=== PATIENT | male | born 1950 | race Caucasian/White ===

== ENCOUNTER 2021-07-16 01:37 | Day surgery (SDC) | payer MEDICARE, OTHER, SELFPAY ==
[2021-06-29 11:22] VITALS: BMI 25.7
[2021-07-16 09:03] VITALS: BP 180/92; PULSE 58; RESP 16; TEMP 36.2; O2SAT 99; BMI 26.9
[2021-07-16] MEDS: LACTATED RINGERS 1,000 ML 150 ML IV CONT (09:13)
--- NOTE | 2021-07-16 09:24 | WPDANESEPPF ---
Anes - Initial Pre Proc Eval Procedure: Operation Date: 07/16/21 09:30 Proposed Procedures p Screening Colonoscopy - Yaya Galaviz MD Date/Time: 07/16/21 09:24 Surgeon: Yaya Galaviz MD Pre Op Diagnosis: neoplasm screening Patient Data Age: 70 Gender: M Height: 1.83 m Weight: 90 kg Last Vital Signs Temp 97.2 F L 07/16/21 09:03 Pulse 58 L 07/16/21 09:03 Resp 16 07/16/21 09:03 BP 180/92 H 07/16/21 09:03 Pulse Ox 99 07/16/21 09:03 Allergies Allergy/AdvReac Type Severity Reaction Status Date / Time Penicillins Allergy Mild Rash Verified 07/16/21 09:02 lisinopril AdvReac Intermediate angioedema Verified 07/16/21 09:02 Home Medications Medication Instructions Recorded Confirmed Type aspirin 81 mg tablet,delayed 81 mg PO DAILY 03/12/21 07/16/21 History release atorvastatin 20 mg tablet 20 mg PO DAILY #90 tablet 03/12/21 07/16/21 Rx infliximab 100 mg intravenous 100 mg IV WE 03/12/21 07/16/21 History solution metoprolol tartrate 100 mg tablet 100 mg PO BID #180 tablet 03/12/21 07/16/21 Rx neomycin 1.75 mg-polymyxin 10,000 1 drp EACH EYE Q6H 03/12/21 07/16/21 History unit-gramicidin 0.025mg/mL eye drops Patient hx anesthesia problems: none Family hx anesthesia problems: none Results Review: All pre-operative results and documents have been reviewed as part of the pre-operative evaluation. [facility] Surgical History Surgical History (Updated 03/12/21 @ 09:13 by Tracey Gallegos MA) History of total right hip replacement Family History Family History (Updated 11/04/13 @ 07:13 by DOCTOR UNKNOWN) Father Family history of Alzheimer's disease Mother Family history of Alzheimer's disease Social History Social History (Updated 03/12/21 @ 09:16 by Tracey Gallegos MA) Smoking status: Never smoker Alcohol intake: current Drinks per week: 2 Substance use: never Substance use type: does not use Living arrangements: with family Gender identity (if verbalized by the patient): Male Sexual Orientation (if Verbalized by the Patient): Straight or Heterosexual Spiritual care concerns: No Agree to blood products: No Anes - Eval Final PreProcedure Day of Procedure 07/16/21 09:24 Patient weight: normal Heart: regular rate and rhythm Lungs: clear to auscultation Neurological: alert and oriented Last oral intake: >/= 8 hours ASA classification: II Emergent: no Anesthetic plan: proceed Anesthesia type and monitoring: general GIVS and standard monitoring Results Review: All pre-operative results and documents have been reviewed as part of the pre-operative evaluation. Informed Consent: The patient's anesthetic plan and its attendant risks and benefits were discussed with the patient/family/POA. Questions were solicited and answers provided to the satisfaction of the patient/family/POA.
--- NOTE | 2021-07-16 09:27 | WPDGICN ---
Assessment and Plan Assessment and plan (1) Screen for colon cancer: Code(s): Z12.11 - Encounter for screening for malignant neoplasm of colon Status: Acute Assessment and Plan: Patient presents today for colonoscopy neoplasia screening. Further recommendations will be given after endoscopy. GI Consult Note Consult date/time: 07/16/21 09:27 HPI: Adriel He is a 70 year old male Presents for screening colonoscopy. Patient's current weight appetite bowel movements are normal. He denies abdominal pain. He has had no bleeding. Previous colonoscopy Was performed 12 years ago. Patient reports his current weight appetite bowel movements are normal. He denies abdominal pain. He has had no bleeding. Family history is noncontributory. He presents today for neoplasia screening. Review of Systems Review of Systems: All systems reviewed & are unremarkable except as noted in HPI and below PMFSH Surgical History Surgical History (Updated 03/12/21 @ 09:13 by Tracey Gallegos MA) History of total right hip replacement Family History Family History (Updated 11/04/13 @ 07:13 by DOCTOR UNKNOWN) Father Family history of Alzheimer's disease Mother Family history of Alzheimer's disease Social History Social History (Updated 03/12/21 @ 09:16 by Tracey Gallegos MA) Smoking status: Never smoker Alcohol intake: current Drinks per week: 2 Substance use: never Substance use type: does not use Living arrangements: with family Gender identity (if verbalized by the patient): Male Sexual Orientation (if Verbalized by the Patient): Straight or Heterosexual Spiritual care concerns: No Agree to blood products: No Meds Home Medications and Allergies Home Medications Medication Instructions Recorded Confirmed Type aspirin 81 mg tablet,delayed 81 mg PO DAILY 03/12/21 07/16/21 History release atorvastatin 20 mg tablet 20 mg PO DAILY #90 tablet 03/12/21 07/16/21 Rx infliximab 100 mg intravenous 100 mg IV WE 03/12/21 07/16/21 History solution metoprolol tartrate 100 mg tablet 100 mg PO BID #180 tablet 03/12/21 07/16/21 Rx neomycin 1.75 mg-polymyxin 10,000 1 drp EACH EYE Q6H 03/12/21 07/16/21 History unit-gramicidin 0.025mg/mL eye drops Allergies Allergy/AdvReac Type Severity Reaction Status Date / Time Penicillins Allergy Mild Rash Verified 07/16/21 09:02 lisinopril AdvReac Intermediate angioedema Verified 07/16/21 09:02 Vital Signs Vital Signs - 24 hr 07/16/21 09:03 Temperature 97.2 F L Pulse Rate 58 L Respiratory Rate 16 Blood Pressure 180/92 H Pulse Oximetry 99 Exam Narrative: Physical exam reveals patient to be alert. Vital signs stable. HEENT exam is unremarkable. Patient is anicteric. Lungs are clear to auscultation and percussion. Heart is without murmur or extra sounds. Abdomen bowel sounds are present soft nontender with no organomegaly. Digital external rectal exam is normal.
[2021-07-16 09:58] VITALS: BP 136/84; PULSE 53; RESP 16; O2SAT 96
[2021-07-16 10:08] VITALS: BP 142/82; PULSE 51; RESP 15; O2SAT 97
[2021-07-16 10:18] VITALS: BP 133/94; PULSE 55; RESP 20; O2SAT 97
== END 2021-07-16 10:28 | disposition home or self-care (01) ==
PROVIDERS: PCP Family Medicine Adolescent Medicine; Visit Provider Internal Medicine Gastroenterology
PROC: 0DJD8ZZ Inspection of Lower Intestinal Tract, Via Natural or Artificial Opening Endoscopic (ICD-10-PCS; CPT 45378; principal; 2021-07-16 09:30)
DX: Z12.11 Encounter for screening for malignant neoplasm of colon (principal); K64.8 Other hemorrhoids; Z96.649 Presence of unspecified artificial hip joint
CPT/HCPCS: G0121; J2704; J7120

== ENCOUNTER 2023-06-04 23:37 | Emergency (ER) | payer MEDICARE, OTHER, SELFPAY ==
[2023-06-04 23:41] VITALS: BP 153/83; PULSE 68; RESP 20; TEMP 36.8; O2SAT 96
--- NOTE | 2023-06-05 00:29 | ED.GENADULT ---
HPI - General Adult General Chief complaint: Urogenital-Male Stated complaint: trouble urination Time Seen by Provider: 06/04/23 23:59 History of Present Illness HPI narrative: Patient is a 72-year-old male who presents emergency department this evening with urinary retention. Patient states that earlier today he underwent general anesthesia for a left eye surgery and since then he has not been able to urinate, states that he only has a few drops of urine dribbling. Patient does not recall if Montoya catheter was placed during his surgery and is currently denying any suprapubic pain. Patient only feels some mild pressure as he feels the urge to urinate but is unable to do so. Patient denies any additional symptoms. There are no other modifying, alleviating, or precipitating factors at this time. Related Data Home Medications Medication Instructions Recorded Confirmed aspirin 81 mg tablet,delayed 81 mg PO DAILY 03/12/21 03/20/23 release Allergies Allergy/AdvReac Type Severity Reaction Status Date / Time Penicillins Allergy Mild Rash Verified 03/20/23 07:55 lisinopril AdvReac Intermediate angioedema Verified 03/20/23 07:55 Review of Systems Review of Systems: All systems are reviewed and are negative unless stated otherwise in the HPI. PMFSH Surgical History Surgical History History of total right hip replacement Family History Family History Father Family history of Alzheimer's disease Mother Family history of Alzheimer's disease Social History Social History Smoking status: Never smoker Alcohol intake: current Drinks per week: 2 Substance use: never Substance use type: does not use Living arrangements: with family Occupation/Education: retired Gender identity (if verbalized by the patient): Male Sexual Orientation (if Verbalized by the Patient): Straight or Heterosexual Spiritual care concerns: No Agree to blood products: No Comments Past medical history consists of a rare autoimmune disease, otherwise patient denies significant past medical history. Exam Narrative: General: Alert, awake, afebrile, in no acute distress. HEENT: Left eye patch, no rhinorrhea, no post nasal drip, oropharynx clear. Neck: Trachea midline, no JVD, no lymphadenopathy. Cardiovascular: Regular rate and rhythm, no murmurs, rubs or gallops, no peripheral edema. Respiratory: Clear to auscultation bilaterally, no tachypnea, no wheezing, no rhonchi, no rubs, no respiratory distress. Abdomen: Soft, nontender, nondistended, no rebound, no guarding, no peritoneal signs. Musculoskeletal: No joint swelling or deformity, normal muscle tone. Skin: No rashes or petechia, no signs of infection. Psychiatric: Alert and oriented, normal behavior and judgment for situation. Neurological: Alert and oriented to person, place, and time. Follows all commands. No focal deficits, speech is clear and fluent. Course Vital Signs Vital signs: Vital Signs Temperature 98.2 F 06/04/23 23:41 Pulse Rate 68 06/04/23 23:41 Respiratory Rate 20 06/04/23 23:41 Blood Pressure 153/83 H 06/04/23 23:41 Pulse Oximetry 96 06/04/23 23:41 Oxygen Delivery Room Air 06/04/23 23:41 Temperature 98.2 F 06/04/23 23:41 Pulse Rate 62 06/05/23 00:56 Respiratory Rate 17 06/05/23 00:56 Blood Pressure 128/85 06/05/23 00:56 Pulse Oximetry 97 06/05/23 00:56 Oxygen Delivery Room Air 06/04/23 23:41 Medical Decision Making MDM Narrative Medical decision making narrative: The patient was evaluated by myself in the emergency department. History is obtained from ara who is an independent historian and physical exam was performed. External medical records were reviewed at this time. Bladder scan was obtained at this time revealing 600 cc
[2023-06-05 00:56] VITALS: BP 128/85; PULSE 62; RESP 17; O2SAT 97
== END 2023-06-05 00:58 | disposition home or self-care (01) ==
PROVIDERS: Emergency Provider Emergency Medicine; PCP Family Medicine Adolescent Medicine
DX: N99.89 Other postprocedural complications and disorders of genitourinary system (principal); R33.9 Retention of urine, unspecified; Z79.82 Long term (current) use of aspirin; Z96.641 Presence of right artificial hip joint; Y83.8 Other surgical procedures as the cause of abnormal reaction of the patient, or of later complication, without mention of misadventure at the time of the procedure
CPT/HCPCS: 51702; 99283

== ENCOUNTER 2023-10-15 09:17 | Outpatient (CLI) | payer MEDICARE, OTHER, SELFPAY ==
--- NOTE | ~2023-10-15 | XR_ITS ---
Right Knee Technique: AP, lateral, and sunrise views were obtained. Clinical History: Pain Findings: No fracture or dislocation is seen. Osseous alignment is anatomic. There is advanced patell ofemoral compartment degenerative change with narrowing of this joint space. There is mild to moderat e medial compartment narrowing. There is mild osteophyte formation, especially the patella and interc ondylar notch. Soft tissues are unremarkable. No joint effusion is seen. Impression: Tricompartmental degenerative change, as above, with narrowing of the medial and patellofemoral snow rtment. Reviewed, dictated and finalized at location M. Impression: Tricompartmental degenerative change, as above, with narrowing of the medial an d patellofemoral compartment.
== END 2023-10-15 09:18 | disposition home or self-care (01) ==
PROVIDERS: PCP Family Medicine Adolescent Medicine; Visit Provider Orthopaedic Surgery
DX: M17.11 Unilateral primary osteoarthritis, right knee (principal)
CPT/HCPCS: 73564

== ENCOUNTER 2023-11-19 23:09 | Emergency (ER) | payer MEDICARE, OTHER, SELFPAY ==
--- NOTE | ~2023-11-19 | CT_ITS ---
CT of the Abdomen and Pelvis: Indication: Left flank pain Technique: 2.5 mm axial scans were obtained through the abdomen and pelvis following intravenous adm inistration of 100 cc of Omnipaque 350. Dose reduction technique was used on this scan by utilizing a utomated exposure control and iterative reconstruction technique. The dose-length product (DLP) was 8 41.63 mGy-cm. Findings: Scans through the lung bases are unremarkable. The liver, spleen, pancreas, gallbladder, adrenals and right kidney are within normal limits. There i s a 5 mm stone at the distal left ureter (axial image 181), with moderate left hydroureteronephrosis to this level. There is left perinephric stranding. There are atherosclerotic calcifications of the a sherron. No lymphadenopathy. No bowel obstruction or bowel wall thickening. There is no evidence to suggest acute appendicitis. Images through the pelvis are mildly degraded by streak artifact from right hip arthroplasty. Urinary bladder unremarkable. No pelvic mass seen. No ascites. Impression: 5 mm distal left ureteral stone with moderate left hydroureteronephrosis to this level. Reviewed, dictated and finalized at location M. Impression: 5 mm distal left ureteral stone with moderate left hydroureteronephrosis to thi s level.
[2023-11-19 23:13] VITALS: BP 175/81; PULSE 57; RESP 20; TEMP 36.8; O2SAT 100
[2023-11-20] MEDS: SODIUM CHLORIDE 0.9% IV 1,000 ML 999 ML IV CONT (03:34)
[2023-11-20] MEDS: MORPHINE SULFATE (*CRX) 4 MG/ML INJ 2 MG IV PUSH (03:35)
[2023-11-20] MEDS: ONDANSETRON INJ 4 MG/2 ML VIAL IV PUSH (03:35)
[2023-11-20 03:44] LABS: Basophils Percent Auto 0.5 % (0.2-1.2); Eosinophils Absolute Auto 0.1 K/mm3 (0-0.3); Eosinophils Percent Auto 0.8 % (0-4.4); Hematocrit 35.2 % (42.0-52.0); Hemoglobin 12.4 g/dL (14.0-18.0); Immature Granulocyte Absolute 0.02 K/mm3 (0.00-0.031); Immature Granulocyte Percent A 0.3 % (0-0.5); Immature Platelet Fraction Pct 2.8 % (0.9-11.2); Lymphocytes Absolute Auto 0.42 K/mm3 (0.9-3.2); Lymphocytes Percent Auto 6.5 % (18.3-44.2); Mean Corpuscular HGB Conc 35.2 g/dl (32-36); Mean Corpuscular Hemoglobin 33.7 pg (26-34); Mean Corpuscular Volume 95.7 fl (80-100); Monocytes Absolute Auto 0.6 K/mm3 (0.1-0.6); Monocytes Percent Auto 9.5 % (2.6-8.5); Neutrophils Absolute Auto 5.3 K/mm3 (1.3-6.7); Neutrophils Percent Auto 82.4 % (45.5-73.1); Platelet Count Result 133 k/mm3 (150-375); Red Blood Count 3.68 M/mm3 (4.6-6.20); White Blood Count 6.4 K/mm3 (4.5-10.0)
[2023-11-20 03:57] LABS: Alanine Aminotransferase 20 U/L (6-50); Albumin Level 4.4 g/dL (3.5-5.1); Alkaline Phosphatase 67 U/L (38-126); Anion Gap 7 mmol/L (4-12); Aspartate Amino Transferase 40 U/L (17-59); Blood Urea Nitrogen 25 mg/dL (9-20); Calcium 8.9 mg/dL (8.4-10.2); Carbon Dioxide 29 mmol/L (22-30); Chloride 101 mmol/L (98-107); Estimated CRCL calculation 41 ml/min; Estimated Glomerular Filt Rate 46; Glucose 135 mg/dL (65-110); Lipase 68 U/L (23-300); Potassium 4.6 mmol/L (3.4-5.0); Sodium 137 mmol/L (137-145)
[2023-11-20 03:58] LABS: Lactic Acid Reflex 1.2 mmol/L (0.7-2.0)
[2023-11-20 04:41] VITALS: BP 146/84; PULSE 62; RESP 16; O2SAT 97
[2023-11-20 04:43] LABS: Add Urine Microscopic? NO; Appearance Urine Clear (Clear); Bilirubin Urine Negative (Negative); Blood Urine Negative (Negative); Color Urine Yellow (Yellow); Glucose Urine UA Negative (Negative); Ketones Urine Trace mg/dL (Negative); Leukocyte Esterase Ur Negative LEU/UL (Negative); Nitrate Urine Negative (Negative); Protein Urine Negative (Negative); Specific Grav Ur 1.026 (1.001-1.035); Urobilinogen Urine 0.2 mg/dL (<2.0); pH Urine 6.5 (5.0-9.0)
[2023-11-20] MEDS: MORPHINE SULFATE (*CRX) 4 MG/ML INJ IV PUSH (04:46)
[2023-11-20 06:47] VITALS: BP 184/94; PULSE 65; RESP 15; O2SAT 100
--- NOTE | 2023-11-20 06:56 | ED.GENADULT ---
HPI - General Adult General Chief complaint: Back Pain/Injury Stated complaint: back pain Time Seen by Provider: 11/20/23 03:17 History of Present Illness HPI narrative: Patient 72-year-old gentleman presents emergency department chief complaint of left flank pain. Patient reports that he was seen by his primary care provider and treated for constipation reports he still has pain. Related Data Home Medications Medication Instructions Recorded Confirmed aspirin 81 mg tablet,delayed 81 mg PO DAILY 03/12/21 11/19/23 release Allergies Allergy/AdvReac Type Severity Reaction Status Date / Time Penicillins Allergy Mild Rash Verified 11/19/23 14:54 lisinopril AdvReac Intermediate angioedema Verified 11/19/23 14:54 Review of Systems Review of Systems: A 10 system review of systems was completed on the patient and is negative except for what is stated in the HPI. Nursing and ancillary documentation was reviewed. [facility] Surgical History Surgical History History of total right hip replacement Family History Family History Father Family history of Alzheimer's disease Mother Family history of Alzheimer's disease Social History Social History Smoking status: Never smoker Alcohol intake: current Drinks per week: 2 Substance use: never Substance use type: does not use Living arrangements: with family Occupation/Education: retired Gender identity (if verbalized by the patient): Male Sexual Orientation (if Verbalized by the Patient): Straight or Heterosexual Spiritual care concerns: No Agree to blood products: No Exam Narrative: GENERAL: Well-appearing, well-nourished, and in no acute distress. HEAD: Normocephalic, atraumatic. EYES: PERRLA and EOMI. ENT: Nares clear, no rhinorrhea or epistaxis. Mucous membranes moist. NECK: Supple. CHEST: Clear to auscultation. No respiratory distress. HEART: Regular rate and rhythm. No murmur heard. Normal peripheral pulses. ABDOMEN: Soft, nontender, nondistended, normal active bowel sounds. EXTREMITIES: Normal range of motion. No edema. SKIN: Warm, dry, no rash. NEURO: No focal deficits. Alert and oriented x3. PSYCH: Normal mood and affect. Course Vital Signs Vital signs: Vital Signs Temperature 36.8 C 11/19/23 23:13 Pulse Rate 57 L 11/19/23 23:13 Respiratory Rate 20 11/19/23 23:13 Blood Pressure 175/81 H 11/19/23 23:13 Pulse Oximetry 100 11/19/23 23:13 Oxygen Delivery Room Air 11/19/23 23:13 Temperature 36.8 C 11/19/23 23:13 Pulse Rate 65 11/20/23 06:47 Respiratory Rate 15 11/20/23 06:47 Blood Pressure 184/94 H 11/20/23 06:47 Pulse Oximetry 100 11/20/23 06:47 Oxygen Delivery Room Air 11/19/23 23:13 Medical Decision Making MDM Narrative Medical decision making narrative: Differential diagnosis includes ureterolithiasis, intra-abdominal infection, diverticulitis, colitis Laboratory studies were obtained on the patient showed a urinalysis with trace ketones electrolytes showed a creatinine 1.5 CBC showed a white count of 6.4 CT scan of the abdomen pelvis showed 5 mm distal left ureteral stone with moderate left hydroureteronephrosis to this level. Vital Signs Vital Signs: Vital Signs Temperature 36.8 C 11/19/23 23:13 Pulse Rate 57 L 11/19/23 23:13 Respiratory Rate 11/19/23 23:13 Blood Pressure 175/81 H 11/19/23 23:13 Pulse Oximetry 100 11/19/23 23:13 Oxygen Delivery Room Air 11/19/23 23:13 Temperature 36.8 C 11/19/23 23:13 Pulse Rate 65 11/20/23 06:47 Respiratory Rate 15 11/20/23 06:47 Blood Pressure 184/94 H 11/20/23 06:47 Pulse Oximetry 100 11/20/23 06:47 Oxygen Delivery Room Air 11/19/23 23:13 Lab Data 11/20/23 03:37 11/20/23 03
[2023-11-20 07:08] VITALS: BP 162/98; PULSE 55; RESP 15; O2SAT 100
== END 2023-11-20 07:09 | disposition home or self-care (01) ==
PROVIDERS: Emergency Provider Emergency Medicine; PCP Family Medicine Adolescent Medicine
DX: N20.1 Calculus of ureter (principal); Z96.641 Presence of right artificial hip joint
CPT/HCPCS: 36415; 74177; 80053; 81003; 83605; 83690; 85025; 85055; 96361; 96374; 96375; 96376; 99284; J2270; J2405; J7030; Q9967

== ENCOUNTER 2024-05-17 10:13 | Outpatient (CLI) | payer MEDICARE, OTHER, SELFPAY ==
--- NOTE | ~2024-05-17 | XR_ITS ---
XR ankle LT 2V Ordering provider: Jose Armando Kim MD History: . chronic pain and deformity around lateral malleolu . Comparison: None. FINDINGS: BONES: No acute fracture or dislocation. Sclerotic changes in the talus with no definite fracture. 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 SOFT TISSUES: Calcaneus spur. IMPRESSION: No acute osseous abnormality left ankle. 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 Reviewed, dictated and finalized at location A.
--- NOTE | ~2024-05-17 | XR_ITS ---
XR foot LT 2V Ordering provider: Jose Armando Kim MD History: . Sudden pain under left 4th metatarsal, R/O stress fx . Comparison: None. FINDINGS: BONES: Sclerotic changes in the talus bone with narrowing of the ankle joint. Osteopenia of the bones in the area of the phalanges. JOINT SPACES: Narrowing of the proximal and distal interphalangeal joints. Osteoarthritic changes of the first metatarsophalangeal joint. Narrowing of the lateral tarsometatarsal joints. No tarsal coali tion. SOFT TISSUES: Normal. Calcaneal spur. IMPRESSION: No definite acute osseous abnormality left foot. Sclerotic changes in the talus with osteoarthritic c hanges of the ankle joint. Polyarticular osteoarthritic changes. Reviewed, dictated and finalized at location A. IMPRESSION: No definite acute osseous abnormality left foot. Sclerotic changes in the talus with osteoarthritic changes of the ankle joint. Polyarticular osteoarthritic changes.
--- OUTSIDE RECORDS SUMMARY | 2024-05-17 12:00 | XMS_ITS | Encounter Summary ---
Author Organization [facility] Healthcare Address [address] [place] [address] Care Team Providers Care Supplies Packer Name Role Phone Jose Armando Kim MD Primary Care Prov ider Encounter Details Date Type Department Care Team (Late st Contact Info) Description 03/13/2023 Telephone [facility] [address] [place] [address] Rashmi Veliz RN Social History Tobacco Use Types Packs/Day Years Used Date Smoking Tobacco: Never Smokeless Tobacco: Never Alcohol Use Standard Drinks/Week Comments Yes 0 (1 standard drink = 0.6 oz pur e alcohol) moderate per patient Hunger Vital Sign Answer Date Recorded Within the past 12 months, y ou worried that your food would run out before you got the money to buy more. Never true 12/17/19 23 Within the past 12 months, t he food you bought just didn't last and you didn't have money to get more. Never true 12/16/2022 Personal Safety Answer Date Recorded Getting School Help Needed Denies 02/17 Sex and Gender Information Value Date Recorded Sex Assigned at Not on file Legal Sex Male 4:01 AM CRIBBER Gender Identity Male 01/26/2020 2:13 PM CRIBBER Sexual Orientation Straight 01/26/2020 2: 13 PM CRIBBER documented as of this encounter Plan of Treatment Not on file documented as of this encounter Visit Diagnoses Not on filedocumented in this encounter Care Teams Supplies Packer Relationship Specialty Start Date End Date Jose Armando Kim MD [address] [place] [address] PCP - General 05/06/16 documented as of this encounter
--- OUTSIDE RECORDS SUMMARY | 2024-05-17 12:00 | XMS_ITS | Referral Summary ---
Author Organization [facility] al Address [address] [place] [address] Care Team Providers Care Cassandra Developer Name Role Phone Jose Armando Kim MD Primary Care Prov ider Encounters Date Type Department Care Team Description 05/14/2024 Telephone [facility] [address] [place] [phone] Lesly Mac MD PhD 04/23/2024 3:00 PM CATCHER PLUG Office Visit [facility] Ophthal[facility] [address] [place] [address] [phone] Lesly Mac MD PhD OCP (ocular cicatricial pemphigoid) (HCC) (Primary Dx) 04/20/2024 Telephone [facility] [address] [place], [place] [phone] Lesly Mac MD PhD appt 04/05/2024 9:00 AM CATCHER PLUG Infusion [facility] [address] [phone] Other primary thrombocytopenia (HCC) (Primary Dx) 03/18/2024 8:45 AM CATCHER PLUG Office Visit [facility] Ophthalmology [address] [place] [address] Outpatient Health [address] [place] [phone] Lesly Mac MD PhD OCP (ocular cicatricial pemphigoid) (HCC) (Primary Dx) 02/25/2024 11:45 AM CATCHER PLUG Office Visit [facility] [address] [phone] Lauren Madrigal MD OCP (ocular cicatricial pemphigoid) (HCC) (Primary Dx); Abrasion of right cornea, subsequent encounter 02/25/2024 Telephone [facility] [address] [place] [phone] Lauren Madrigal MD same day appt 02/20/2024 12:45 PM CATCHER PLUG Office Visit [facility] [address] [place] [phone] Lesly Mac MD PhD OCP (ocular cicatricial pemphigoid) (HCC) (Primary Dx); Trichiasis of eyelid of both eyes; Abrasion of right cornea, subsequent encounter 02/19/2024 2:24 PM CATCHER PLUG - 02/19/2024 11:59 PM CATCHER PLUG Hospital Encounter [facility] [address] [place] [phone] Kidney stone Discharge Disposition: Discharge to home or self care 02/19/2024 1:00 PM CATCHER PLUG Office Visit [facility] ([facility]) - [facility] Urology [address] [place] [address] Advanced Medicine 11th [place] [address] [place] [address] Bob Stevens MD Kidney stone (Primary Dx) 02/18/2024 10:44 AM CATCHER PLUG - 02/18/2024 11:59 PM CATCHER PLUG Hospital Encounter [facility] [address] [place] [address] OCP (ocular cicatricial pemphigoid) (HCC) Discharge Disposition: Discharge to home or self care 02/18/2024 Orders Only [facility] [address] [place] [phone] Lesly Mac MD PhD OCP (ocular cicatricial pemphigoid) (HCC) (Primary Dx) 02/18/2024 10:00 AM CATCHER PLUG Office Visit [facility] Internal Medicine [facility] [place] [phone] Timoteo Mtz MD PhD OCP (ocular cicatricial pemphigoid) ([facility]) (Primary Dx); High risk medications (not anticoagulants) long-term use 02/18/2024 8:45 AM CATCHER PLUG Office Visit [facility]mology [address] [place] [address] 6th [place] [phone] Lesly Mac MD PhD OCP (ocular cicatricial pemphigoid) ([facility]) (Primary Dx) from Last 3 Months Allergies Active Allergy Reactions Criticality Noted Date Comments Penicillins Rash,Swelling Medium Medications atorvastatin (LIPITOR) 20 mg tablet Take 1 tablet (20 mg total) by mouth every morning 8 Active aspirin 81 mg enteric coated tablet Take 1 tablet (81 mg total) by mouth daily with lunch Active amLODIPine (NORVASC) 5 mg tablet Take 1 tablet (5 mg total) by mouth every evening Active metoprolol (LOPRESSOR) 100 mg tablet Take 1 tablet (100 mg total) by mouth 2 (two) times a day 3 Active prednisoLONE acetate (PRED FORTE) 1 % ophthalmic suspension Administer 1 drop into the left eye 6 (six) times a day For use after surgery with Dr. Mac 15 mL 3 4 Active Additional Information Patient taking differently:1 drop left eye4 times daily, For use after surgery with Dr. Mac, Reported on 04/23/2024 moxifloxacin (VIGAMOX) 0.5 % ophthalmic solution Administer 1 drop into the right eye 4 (four) times a day 3 mL 11 5 Active Additional Information Patient not taking.Reported on 04/23/2024 polymyxin B-trimethoprim (POLYTRIM) ophthalmic solutionIndicat ions:OCP (ocular cicatricial pemphigoid) (FORMERLY [facility]) Administer 1 drop into both eyes 4 (four) times a day 10 mL 5 Active polymyxin B-trimethoprim (POLYTRIM) ophthalmic solution Administer 1 drop into both eyes 4 (four) times a day 10 mL 5 025 Discontin ued(Reord er) Active Problems Problem Noted Date Diagnosed Date Immunosuppressed status 11/28/2023 Pyelonephritis 11/23/2023 Kidney stone 11/23/2023 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 Patient does not have any itching. Vision seems to be stable. Gtts: Polymyxin 5x's/day both eyes (OU) for BCL Clinical exam revealed stable MMP both eyes (OU) with mild conj injection both eyes (OU) However, there are sig allergic blepharitis with excoriation of lower eyelids Epilation for trichiasis and LMX pricilla BID to lower eyelids RTC one month or sooner if worse Nausea and vomiting in adult 08/18/2017 High risk medications (not anticoagulants) long- term use 09/04/2016 Assessment & Plan (11/19/2017 2:19 PM CDT): On cytoxan infusion [id number] with pre-infusion lab and 2wk post infusion labs Will call us if the lab is abnormal after infusion Corneal abrasion 08/09/2016 Assessment & Plan (12/25/2021 3:54 PM CDT): Large central defect left eye (OS). New BCL today, KAL 8.4, plano left eye (OS) Seeing Dr Cristobal tomorrow morning. Ct polytrim drops as dir. 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 Mtz - Currently on Cytoxan infusion every 4 weeks (from 800 to 1000 to 1200), most recent one 02/17/2023 - Failed humira, azathioprine, mycophenolate, methotrexate, cyclophosphamide, cyclosporin, tofacitinib, infliximab, IVIG, and rituximab Overall much better ocular surface with less inflammation and mucus TODAY - The OCP remains stable - OD central cornea is clear and use it for near vision, persistent symblepharon with injection, BCL in place - VA HM OS with stable fibrosis and symblepharon - Multiple trichiasis OU, epilated at slit lamp - No BCL in left eye (OS) - did not replace given very short fornix and symblepharon, would not be able to hold contact lens (CL) - Defer BCL replacement; right eye (OD) 8.4/14.0, plano Acuvue Oasys today PLAN: - Continue Polytrim QID both eyes (OU) - Continue Maxitrol pricilla left eye (OS) as there is no BCL - Will be seen by Dr. Mtz today - Lashes epilated OU May consider AMT and fornix reconstruction if can remain on cytoxan RTC in 4-[address] Mtz and Dr. Estefania Cristobal MD Assessment & Plan (01/29/2023 10:44 AM CATCHER PLUG): - Hx OCP and trichiasis OU, co-managed with Dr. Mtz - Currently on Cytoxan infusion every 4 weeks (from 800 to 1000 to 1200, had 4th infusion 11/13/22), next one 12/16/22 - Failed humira, azathioprine, mycophenolate, methotrexate, cyclophosphamide, cyclosporin, tofacitinib, infliximab, IVIG, and rituximab TODAY - The OCP remains stable - OD central cornea is clear and use it for near vision, persistent symblepharon with injection - VA HM OS with stable fibrosis and symblepharon - Multiple trichiasis OU, epilated at slit lamp - BCL in place OD - No BCL in left eye (OS) - did not replace given very short fornix and symblepharon, would not be able to hold contact lens (CL) PLAN: - Continue polytrim QID both eyes (OU) - Continue maxitrol pricilla left eye (OS) as there is no BCL - Will be seen by Dr. Mtz today - Lashes epilated RUL, RLL, LUIS, LLL May consider KLAL or SLET if can remain on cytoxan RTC in 4-6 weeks with Assessment & Plan (01/01/2023 9:41 AM CDT): - Hx OCP and trichiasis OU, co-managed with Dr. Mtz - Currently on Cytoxan infusion every 4 weeks (from 800 to 1000 to 1200, had 4th infusion 11/13/22), next one 12/16/22 - Failed humira, azathioprine, mycophenolate, methotrexate, cyclophosphamide, cyclosporin, tofacitinib, infliximab, IVIG, and rituximab TODAY - The OCP remains stable - OD central cornea is clear and use it for near vision, persistent symblepharon with injection - VA HM OS with stable fibrosis and symblepharon - Multiple trichiasis OU, epilated at slit lamp - No BCL in left eye (OS) - did not replace given very short fornix and symblepharon, would not be able to hold contact lens (CL) - BCL replaced right eye (OD) 8.4/14.0 , plano Acuvue Oasys today PLAN: - Continue polytrim QID both eyes (OU) - Continue maxitrol pricilla left eye (OS) as there is no BCL - Will be seen by Dr. Mtz today - Lashes epilated right upper eyelid (RUL) today May consider KLAL or SLET if can remain on cytoxan RTC in 4-6 weeks with Assessment & Plan (12/04/2022 9:07 AM CDT): - Hx OCP and trichiasis OU, co-managed with Dr. Mtz - Currently on Cytoxan infusion every 4 weeks (from 800 to 1000 to 1200, had 4th infusion 11/13/22), next one 12/16/22 - Failed humira, azathioprine, mycophenolate, methotrexate, cyclophosphamide, cyclosporin, tofacitinib, infliximab, IVIG, and rituximab TODAY: - The OCP is finally better or stabilized - OD central cornea is clear and use it for near vision, persistent symblepharon with injection - VA HM OS with progressive symblepharon - Multiple trichiasis OU, epilated at slit lamp - No BCL in left eye (OS) - did not replace given very short fornix and symblepharon, would not be able to hold contact lens (CL) - BCL placed right eye (OD) 8.4/14.0 +0D Acuvue Oasys - at October appt (self- changed one week ago) PLAN: - Continue polytrim QID both eyes (OU) - Continue maxitrol pricilla left eye (OS) as there is no BCL - Will be seen by Dr. Mtz today - Lashes epilated right upper eyelid (RUL) today RTC in 4 weeks with Assessment & Plan (10/30/2022 8:52 AM CDT): - Hx OCP and trichiasis OU, co-managed with Dr. Mtz - Currently on Cytoxan infusion every 4 weeks (from 800 to 1000, had 3rd infusion 1200 10/14/22) - Failed humira, methotrexate, azathioprine, mycophenolate, cyclophosphamide, cyclosporin, tofacitinib, infliximab, IVIG, and rituximab TODAY: - The OCP is finally better or stabilized - OD central cornea is clear and use it for near vision, persistent symblepharon with injection - VA HM OS with progressive symblepharon - Multiple trichiasis OU, epilated at slit lamp - No BCL in left eye (OS) - did not replace given very short fornix and symblepharon, would not be able to hold contact lens (CL) - BCL placed right eye (OD) 8.4/14.0 +0D Acuvue Oasys The eyes seem to be better on current dosing PLAN: - Continue polytrim QID both eyes (OU) _add maxitrol pricilla left eye (OS) as there is no BCL - Will be seen by Dr. Mtz today RTC in 4 weeks with Assessment & Plan (09/18/2022 9:55 AM CDT): Hx OCP and trichiasis OU, co-managed with Dr. Mtz Currently on Cytoxan infusion every 4 weeks (from 800 to 1000,now will be getting 3rd infusion at 1200) Failed humira, methotrexate, azathioprine, mycophenolate, cyclophosphamide, cyclosporin, tofacitinib, infliximab, IVIG, and rituximab TODAY: The OCP is finally better or stabilized OD central cornea is clear and use it for near vision, persistent symblepharon with injection - VA HM OS with progressive symblepharon, BCL in place - Multiple trichiasis OU, epilated at slit lamp - BCL OS with debris underneath, defer removal - BCL H2O med -0.25 OD and -2.25 OS (prior) 13.6 mm PLAN: - Continue polytrim QID OU Will be seen by Dr. Mtz today RTC in 2-3 weeks Assessment & Plan (08/21/2022 3:24 PM CDT): Hx OCP and trichiasis OU, co-managed with Dr. Mtz Currently on Cytoxan infusion every 4 weeks (from 800 to 1000,now will be getting 3rd infusion at 1200) Failed humira, methotrexate, azathioprine, mycophenolate, cyclophosphamide, cyclosporin, tofacitinib, infliximab, IVIG, and rituximab TODAY: OD central cornea is clear and use it for near vision, persistent symblepharon with injection - VA HM OS with progressive symblepharon - Multiple trichiasis OU, epilated at slit lamp - BCL OS with debris underneath, defer removal - BCL H20 med -0.25 OD and -2.25 OS (prior) 13.6 mm PLAN: - Continue polytrim QID OU Will be seen by Dr. Mtz today RTC in 2-3 weeks Assessment & Plan (08/07/2022 10:42 AM CDT): Hx OCP and trichiasis OU, co-managed with Dr. Mtz Currently on Cytoxan infusion (2 weeks ago) Lab was done yesterday with slightly better results Has failed humira, methotrexate, mycophenolate, cyclophosphamide, cyclosporin, tofacitinib, infliximab, and rituximab TODAY: - VA 20/200 OS - Multiple trichiasis OU - BCL H20 med -0.25 OD and -2.25 OS (prior) 13.6 mm PLAN: - Continue polytrim QID OU RTC in 2 weeks Assessment & Plan (07/17/2022 11:42 AM CDT): Hx OCP and trichiasis OU, comanaged with Dr. Mtz Currently on IVIG (dose was increased from 80 to 90g on 04/29/22) and AZA 150 daily. Has failed humira, methotrexate, mycophenolate, cyclophosphamide, cyclosporin, tofacitinib, infliximab, and rituximab Per rheum, next options would be repeat rituxan trial or CyC TODAY: - VA HM OS (worsened from last visit) - Multiple trichiasis OU - BCL H20 med -0.25 OD and -2.25 OS (prior) PLAN: - RUL/RLL and LUIS/LLL lashes epilated today - Vitamin A for keratinization - Continue polytrim QID OU - LTX prn - Still with active inflammation - had IVIG dose increased on 04/29/22 to 90 from 80, rheum considering Cyc IV if inflammation has no improved but worried about cumulative toxicity. Will discuss with rheum RTC in one month Assessment & Plan (06/19/2022 12:31 PM CDT): Hx OCP and trichiasis OU, comanaged with Dr. Mtz Currently on IVIG (dose was increased from 80 to 90g on 04/29/22) and AZA 150 daily. Has failed humira, methotrexate, mycophenolate, cyclophosphamide, cyclosporin, tofacitinib, infliximab, and rituximab Per rheum, next options would be repeat rituxan trial or CyC TODAY: - VA ph (was ) - IOP stable OU, multiple trichiasis OU - OD improved from prior, OS with surface keratinization - BCL H20 med -0.25 OD and -2.25 OS PLAN: - BCL OS replaced today - RUL/RLL and LUIS/LLL lashes epillated today - Start Vitamin A for keratinization - Continue polytrim QID OU - LTX prn - Still with active inflammation - had IVIG dose increased on 04/29/22 to 90 from 80, rheum considering Cyc IV if inflammation has no improved but worried about cumulative toxicity. Will discuss with rheum RTC in one month Assessment & Plan (05/29/2022 11:30 AM CDT): Hx OCP and trichiasis OU, comanaged with Dr. Mtz Currently on IVIG (dose was increased from 80 to 90g on 04/29/22) and AZA 150 daily. Has failed humira, methotrexate, mycophenolate, cyclophosphamide, cyclosporin, tofacitinib, infliximab, and rituximab Per rheum, next options would be repeat rituxan trial or CyC TODAY: - VA 20/40e - IOP stable OU, multiple trichiasis OU - OD with injection more prominent inferiorly, symblepharon temporally and centrally LL - OS with injection inferiorly and temporally, symblepharon at temporal and nasal LL - BCL H20 med -0.25 OD and -2.25 OS PLAN: - RUL/RLL and LUIS/LLL lashes epillated today - Changes contact lenses himself. Acuvue MRx for -0.25 OD and -2.25 OS provided - Continue polytrim QID OU - LMX prn - Still with active inflammation but better - recently had IVIG dose increased on 04/29/22, will give this anoher month to see if this improves inflammation. If not, consider rituxan or cyclophosphamide per last rheum note RTC in one month Assessment & Plan (05/15/2022 12:27 PM CATCHER PLUG): Hx OCP and trichiasis OU, comanaged with Dr. Mtz Currently on IVIG - dose was increased today TODAY: - VA J1 and 20/30 (stable) - IOP stable OU, multiple trichiasis OU - OD with injection more prominent inferiorly, symblepharon temporally and centrally LL - OS with injection inferiorly and temporally, symblepharon at temporal and nasal LL - BCL H20 med -0.25 OD and -2.25 OS PLAN: - RUL/RLL and LUIS/LLL lashes epillated today - Changes contact lenses himself. Acuvue MRx for -0.25 OD and -2.25 OS provided - Continue polytrim QID OU - LMX prn - Still with active inflammation but better, will see Dr. Mtz today RTC in one month Assessment & Plan (04/17/2022 10:08 AM CATCHER PLUG): Hx OCP and trichiasis OU, comanaged with Dr. Mtz - Currently on IVIG every 2 weeks, just had 5th infusion (40, 60, 60, 80, 80) on 03/18/2022 and 04/15/22 with 80 gm 3x so far (started late December 2021) and azothioprim (imuran) 150mg QD - Had had previous on remicade infusions (07/30/21, 08/27, 09/24, 10/22) without long-term success TODAY: - VA J1 and 20/30 (stable) - IOP stable OU, multiple trichiasis OU - OD with injection more prominent inferiorly, symblepharon temporally and centrally LL - OS with injection inferiorly and temporally, symblepharon at temporal and nasal LL - BCL H20 med -0.25 OD and -2.25 OS PLAN: - RUL/RLL and LUIS/LLL lashes epillated today - Changes contact lenses himself. Provided prescription - Continue polytrim QID OU - LMX prn (sample given) - Still with active inflammation but better, will see Dr. Mtz today RTC in one month Assessment & Plan (03/20/2022 9:07 AM CATCHER PLUG): Hx OCP and trichiasis OU, comanaged with Dr. Mtz - Currently on IVIG every 2 weeks, just had 5th infusion (40, 60, 60, 80, 80) on 03/18/2022 with 80 gm twice so far (started late December 2021) and azothioprim (imuran) 150mg QD - Had had previous on remicade infusions (07/30/21, 08/27, 09/24, 10/22) TODAY: - VA J3 and 30 (stable) - IOP 16/12 - OD with injection more prominent inferiorly, symblepharon temporally and centrally LL - OS with injection inferiorly and temporally, symblepharon at temporal and nasal LL - BCL H20 med -0.25 OD and -2.25 OS PLAN: - RUL and LUIS lashes epillated today - Changes contact lenses himself. Provided prescription - Continue polytrim QID OU - LMX prn - Still with active inflammation, will see Dr. Mtz today RTC in 2-3 weeks Assessment & Plan (02/20/2022 9:25 AM CATCHER PLUG): Hx OCP and trichiasis OU, comanaged with Dr. Mtz - Remicade infusion done 07/30/21, 08/27, 09/24, 10/22 - Also on IVIG (400mg monthly) and azothioprim (Imuran) 150 mg qd TODAY: -Still with injection of inferior tarsal conj OS>OD -Still with active inflammation PLAN: -Continue polytrim QID OU -LMX prn RTC in 2-3 weeks Assessment & Plan (01/16/2022 9:38 AM CATCHER PLUG): Hx OCP and trichiasis OU, comanaged with Dr. Mtz - Melissaicade infusion done 07/30/21, 08/27, 09/24, 10/22 - First session of IVIG last Friday (400mg monthly) - On azothioprim (Imuran) 150 mg qd TODAY: -Still with injection of inferior tarsal conj OS>OD -Still with active inflammation, to see Dr. Mtz today PLAN: -Continue polytrim QID OU -LMX prn RTC in 2-3 weeks Assessment & Plan (01/02/2022 10:18 AM CDT): Hx OCP and trichiasis OU, comanaged with Dr. Smith Sol infusion done 07/30/21, 08/27, 09/24, 10/22 Waiting for IVIG, thioazoprim (Imuran) 200 mg qd - started imuran 200mg 2 days ago (was on 150 for 2-3 weeks) - Yesterday seen by Dr. Back for corneal abrasion and had new BCL placed TODAY: -Still with injection of inferior tarsal conj OS>OD -Diffuse corneal haze with no infiltrates OS, BCL in place OU with no ED or infiltrates OU -Lashes removed at slit lamp OU -Still with active inflammation, patient will contact Sophia/ Dr. Mtz for startimg IVIG next Friday PLAN: -Continue polytrim QID OU -LMX prn RTC in 2-3 weeks Sampson Cristobal MD Assessment & Plan (12/26/2021 9:26 AM CDT): Hx OCP and trichiasis OU, comanaged with Dr. Mtz - Remicade infusion done 07/30/21, 08/27, 09/24, 10/22 Waiting for IVIG, thioazoprim (Imuran) 200 mg qd - started imuran 200mg 2 days ago (was on 150 for 2-3 weeks) - Yesterday seen by Dr. Back for corneal abrasion and had new BCL placed TODAY: -Still with injection of inferior tarsal conj OS>OD -Diffuse corneal haze with no infiltrates OS -Lashes removed at slit lamp OU -Still with active inflammation, patient will contact Sophia/ Dr. Mtz for startimg IVIG PLAN: -Continue polytrim QID OU -LMX prn RTC in one week for corneal abrasion Sampson Cristobal MD Assessment & Plan (12/25/2021 3:53 PM CDT): Continue care with Dr Cristobal Assessment & Plan (12/19/2021 9:21 AM CDT): Hx OCP and trichiasis OU, comanaged with Dr. Mtz - [place] infusion done 07/30/21, 08/27, 09/24, 10/22 - Has NOT started imuran - LTX drops did not help TODAY: -Still with injection of inferior tarsal conj OS>OD -Lashes removed at slit lamp -Still with active inflammation, patient will let follow up with Dr. Mtz for further immunosuppresion PLAN: -Continue polytrim QID OU -Recommend using magnified mirror and duck-bill tweezers if self-epilating RTC in 3-4 weeks with joint appointment with Dr. Mtz Assessment & Plan (11/07/2021 8:53 AM CDT): Hx OCP and trichiasis OU, comanaged with Dr. Mtz - [place] infusion done 07/30/21, 08/27, 09/24, 10/22 - Started imuran 10/03/21 TODAY: -Still with injection of inferior tarsal conj OS>OD -Lashes removed at slit lamp -BCL in place OU; samples given OU - Still with active inflammation, and will let Dr. Mtz decide if further immuno suppression is indicated PLAN: -Continue polytrim QID OU -Recommend using magnified mirror and duck-bill tweezers if self-epilating. RTC per Dr. Mtz Assessment & Plan (10/03/2021 10:04 AM CDT): Hx OCP and trichiasis OU, comanaged with Dr. Mtz TODAY: -Infusion done 07/30, 08/27 (Increased remicade to q4 week) -Still with injection of inferior tarsal conj OS>OD -Lashes removed at slit lamp -BCL in place OU; samples given OU Still with active inflammation, and will let Dr. Mtz decide if further immuno suppression is indicated PLAN: -Continue polytrim QID OU -Recommend using magnified mirror and duck-bill tweezers if self-epilating. -At next visit will have been on Remicade q 4 weeks for 3 months -per rhem if fails Remicade, can trial with IVIg ? RTC per Dr. Mtz Assessment & Plan (08/29/2021 10:22 AM CDT): Hx OCP and trichiasis OU, comanaged with Dr. Mtz TODAY: -Infusion done 07/30, 08/27 (Increased remicade to q4 week) -Still with injection of inferior tarsal conj OS>OD -Lashes removed at slit lamp -BCL in place OU PLAN: -Continue polytrim QID OU -Recommend using magnified mirror and duck-bill tweezers if self-epilating. -At next visit will have been on Remicade q 4 weeks for 3 months -per rhem if fails Remicade, can trial IVIg or AZA, will assess at next visit if any improvement in redness. RTC 5 weeks Assessment & Plan (07/25/2021 9:12 AM CDT): Hx OCP and trichiasis OU, comanaged with Dr. Mtz TODAY: -Increased remicade to q4 week -Still with injection of inferior tarsal conj OS>OD -Symptom per patient about stable. -Self epilating at home- few lashes removed at SL. -BCL in place OU PLAN: -Continue polytrim QID OU -Lashes epilated today -Recommend using magnified mirror and duck-bill tweezers if self-epilating. -Next infusion is on Friday -per rhem if fails Remicade, can trial IVIg or AZA, will assess at next visit if any improvement in redness. RTC 6 weeks Assessment & Plan (06/20/2021 8:51 AM CDT): Hx OCP and trichiasis OU, comanaged with Dr. Mtz On remicade [id number] moderate control TODAY: -Disease continues to appears moderately active OS>OD with injection of inferior tarsal conjunctiva. -Symptom per patient about stable. -Self epilating at home- few lashes removed at . -BCL in place OU PLAN: -Continue to follow with rheum- will be seeing Dr. Mtz today; currently on remicade q6w - may need to consider increasing dose to q4 weeks for improved control. Will discuss with Rheum today. -Continue polytrim QID OU -Lashes epilated today -Recommend using magnified mirror and duck-bill tweezers if self-epilating. RTC 6 weeks Assessment & Plan (05/02/2021 8:52 AM CATCHER PLUG): Hx OCP and trichiasis OU, comanaged with Dr. Mtz On remicade [id number] moderate control TODAY: Vision stable but photophobia worsening OU Disease appears moderately active in both eyes today Infusions seem to be lasting less duration with increasing symptoms PLAN: Continue to follow with rheum- will be seeing Dr. Mtz today; currently on remicade q6w Continue polytrim QID OU Lashes epilated today RTC 4-6 weeks Assessment & Plan (02/28/2021 9:18 AM CATCHER PLUG): Hx OCP and trichiasis OU, comanaged with Dr. Mtz On remicade q2 mo (last 02/26/21) with moderate control TODAY: Vision stable but photophobia worsening OU Disease appears moderately active in both eyes today PLAN: Continue to follow with rheum- will be seeing Dr. Mtz today; currently on remicade q2mo Continue polytrim QID OU Lashes epilated today RTC 6 weeks Assessment & Plan (01/03/2021 9:24 AM CDT): Hx. OCP with significant trichiasis comanaged with Dr. 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 MMP with significant trichiasis comanaged with Dr. 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 MMP with significant trichiasis comanaged with Dr. 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 Has failed many immunosuppressive medications and follows w/ Dr. Mtz. Was previous controlled on IV Cytoxan for 2 years. Had been on MTX 20mg weekly (about 2 yearx ago) and Humira every other week for one month ($$), but switching from Humira/Xeljian (last dose was about one month ago) to Remicade only Now has been on 7 courses of Remicade with borderline control Both eyes still feel irritated due to trichiasis VA stable. Eyelashes epilated OU today. Symblepharon and persistent injection OU today. Relatively stabel with residualOCP activities, OS>OD today , but less keratinization along lower tarsal conj left eye (OS). Will continue to monitor to see how he does on Remicade alone CPM with Polytrim QID both eyes (OU) Spare BCL x 2 for left eye (OS) given today RTC 6 weeks Sampson Cristobal MD Assessment & Plan (05/17/2020 9:46 AM CATCHER PLUG): Has been getting Remicade 8 gm infusion every 8 weeks (so far had 7 infusions) During the recent infusion on 03/22/20, he developed ? Allergic/anaphylasis reactions at the end of infusion, but no significant sequelae But no complication yesterday during the 7th infusion Overall less injection OU with no sig worsening of symblepharon both eyes (OU) Overall stable Epilation both eyes (OU) If Remicade to be continued, will consider elctrolysis CPM Polytirm QID RTC 2 months Assessment & Plan (04/05/2020 9:13 AM CATCHER PLUG): Has been getting Remicade 8 gm infusion every 8 weeks (so far had 6 infusions) During the recent infusion on 03/22/20, he developed ? 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 Vision stable. Eyes overall comfortable. Feels that eyelashes are becoming bothersome again OU. Remicade infusion q2mo. Last infusion 01/26/2020 Remicade had been 600 mg and was increased to 800. Eye exam without worsening both eyes (OU). IOP normal. 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 Vision stable. Eyelashes growing in, bothersome. Will see Dr. Mtz via telemed 12/23/2019. Remicade infusion q2mo; last infusion Friday12/01/2019 Remicade had been 600 mg and was increased to 800 during the last infusion (now have had 4 infusions so far) Overall stable without worsening both eyes (OU) other than trichiasis both eyes (OU) epilations today OU Polytrim QID both eyes (OU) Tobradex pricilla HS or prn Sampson Cristobal MD Assessment & Plan (11/03/2019 9:26 AM CDT): 1 mth f/u for ocular MMP H/o Trichiasis of eyelid of both eyes Has tried multiple meds for MMP but not rendering effective control as cytoxan Remicade started 08/25/19 under the guidance of Dr. Mtz Patient feels that he has had some improvement since last visit No pain Persistent ocular surface inflammation with mild injection No worsening of MMP or symblepharon Epilation of tricihiasis today all lids. To see Dr. Mtz after this appt today. CPM with Polytrim QID OU RTC 5 weeks to see me and Dr. Mtz on the same day. Assessment & Plan (09/27/2019 11:42 AM CDT): 1 mth f/u for ocular MMP H/o Trichiasis of eyelid of both eyes Has tried multiple meds for MMP but not rendering effective control as cytoxan Remicade started 08/25/19 under the guidance of Dr. Mtz Patient feels that he has had some improvement since last visit No pain Persistent ocular surface inflammation with mild injection No worsening of MMP or symblepharon Epilation of tricihiasis today CPM with Polytrim QID OU RTC 5 weeks to see me and Dr. Mtz on the same day. 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 Has failed many immunosuppressive medications and follows w/ Dr. Mtz. Was previous controlled on IV Cytoxan for 2 years. Had been on MTX 20mg weekly (about one year ago) and Humira every other week for one month ($$), but switching from Humira/Xeljian (last dose was about one month ago) to Remicade only (starting in 2 days) this week Both eyes still feel irritated. VA stable. More lashes epilated OU today. Symblepharon and injection OU today. Still with relatively active disease OS>OD today and improved keratinization along lower tarsal conj left eye (OS). Will monitor to see how he does on Remicade alone CPM with Polytrim QID OU RTC 6 weeks Assessment & Plan (07/19/2019 9:18 AM CDT): 1 mos follow up H/O MMP, BCL OU, Monovision CTL with near OD and distance left eye (OS) (-2.00 base curve (BC) 8.5, 14.2 mm). Has failed many immunosuppressive medications and follows w/ Dr. Mtz. Was previous controlled on Cytoxan for 2 years. Currently on Xeljanz for 90 days with borderline improvement. Both eyes still feel irritated OS>OD More lashes epilated OU today. Symblepharon and injection OU today. Still with relatively active disease OS>OD today and improved keratinization along lower tarsal conj left eye (OS). Recommend switching to different immunosuppressive medication such as Humira (patient also previously w/ inactive disease while on cytoxan). CPM with Polytrim QID OU RTC 1 mos Assessment & Plan (06/14/2019 8:59 AM CDT): 3 wk follow up H/O MMP, BCL OU, Monovision CTL with near OD and distance left eye (OS) (-2.00 base curve (BC) 8.5, 14.2 mm). Has failed many immunosuppressive medications and follows w/ Dr. Mtz. Currently on Xeljanz for 7 weeks with borderline improvement. More lashes epilated OU today. Symblepharon and injection OU today. Still with relatively active disease OS today and moderate keratinization along lower tarsal conj left eye (OS).. One more week of Xeljanz to go and will wait for the response and make a decision if he should stay on or change meds. (patient previously w/ inactive disease while on cytoxan). CPM with Polytrim QID OU May consider topical vitreous (vit) A for keratinization next visit if it should persist. RTC 1 mos Assessment & Plan (05/26/2019 9:32 AM CDT): 1 month follow up H/O MMP, BCL OU, Monovision CTL with near OD and distance OS. Has failed many immunosuppressive medications and follows w/ Dr. Mtz. Currently on Xeljanz for 5 weeks without improvement. Patient epilates lashes at home. More lashes epilated OU today. Symblepharon and injection OU today. Still with active disease OU today. Consider switching to Humira. Could also consider resuming Cytoxan (patient previously w/ inactive disease on this medication). CPM with Polytrim QID OU RTC 1 mos Assessment & Plan (04/21/2019 9:05 AM CATCHER PLUG): 1 month follow up H/O MMP, BCL OU, Delta VA CTL with near OD and Distance OS. Previously on cytoxan infusions, now on Cellcept for past [address] Mtz. Patient c/o lashes curling in on both eyes. Epilates lashes at home. More lashes epilated OU today. Symblepharon and injection OU today. Still with active disease OU today. All labs have been in range. Consider adding Acthar. CPM with Polytrim QID OU and Cellcept 1.5mg BID RTC 1 mos Assessment & Plan (03/17/2019 2:28 PM CATCHER PLUG): 1 month follow up H/O MMP,BCL OU, Delta VA CTL with near OD and Distance OS, Patient c/o lashes curling in on both eyes Had Cytoxan infusion last 02/15/19 (has had around ~10 infusions); will be holding off for a while cellcept 2000mg starting last Friday will be starting 1.5 gm BID in two weeks per Dr. Mtz All labs have been in range Ocular surface stable with persistent symblepharon and mild conj njection Persistent trichiasis both eyes (OU) s/p Epilation both eyes (OU) today CPM with Polytrim QID OU RTC 5 weeks Assessment & Plan (02/10/2019 8:34 AM CATCHER PLUG): 1 month follow up H/O MMP,BCL OU, Delta VA CTL with near OD and Distance OS, Trichiasis s/p Epilation both eyes (OU). Today feels irritation OU has improved. Feels colder weather may be helping allergies. 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 Last visit noted some flare up while on cytoxan infusion. Trichiasis epilated both eyes (OU). Also some allergic conjunctivitis Pt seen with Dr. Pollock, previously suggested trial of MITCH inhibitor if qualified. Previous plan to discuss with Drs. Gan and Smith CPM for now with polytrim QID both eyes (OU) and will see patient in 4-5 weeks before next infusion appointment Assessment & Plan (01/18/2019 11:47 AM CATCHER PLUG): 1 month follow up H/O MMP,BCL OU, Delta VA CTL with near OD and Distance OS, Trichiasis s/p Epilation both eyes (OU). BREANA 12/16/2018 Pt c/o eyelashes causing irritation OU, with OS worse than OD. Next appointment w/ in May. Ocular Medications: Polytrim: 5x daily OU, last taken 8am this morning. 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 Trichiasis epilated both eyes (OU). Also some allergic conjunctivitis Pt seen with Dr. Pollock, who suggested trial of MITCH inhibitor if qualified. Will discuss with Drs. Gan and Smith CPM for now with polytrim QID both eyes (OU) and will see patient in 4-5 weeks before next infusion appointment Assessment & Plan (12/16/2018 12:19 PM CDT): H/O MMP,BCL OU, Delta VA CTL with near OD and Distance OS, Trichiasis s/p Epilation OU F/u OCP Now is using -2.0 soft contact lens (SCL) left eye (OS) for distance, right SCL not present on exam CC: Vision stable, complains of irritation for last week OD>>OS Ocular meds: Vigamox TID OU, Cytoxan infusion q10 weeksHx of mild flareup when trying to use cytoxan injection q 12 weeks Last lab and seen in August 2018, mild leukopenia and will watch Today's exam missing SCL OD. Abscence of SCL OD most likely responsible for increased irritation OD Replaced SCL OD with +0.75 14.2mm MED extreme H2O CL CPM and will see patient in 2-3 months, appointment with Dr. Gan later today Assessment & Plan (10/21/2018 3:20 PM CDT): H/O MMP,BCL OU, Delta VA CTL with near OD and Distance OS, Trichiasis s/p Epilation OU F/u OCP Now is using -2.0 soft contact lens (SCL) left eye (OS) for distance on his own CC: Patient states that there have been no changes in the way his eyes feel and the vision. Next Cytoxan in fusion is December 07. Ocular meds: Polymyxin 5x/day OU, Cytoxan infusion q10 weeksHx of mild flareup when trying to use cytoxan injection q 12 weeks Last lab and seen in August 2018, mild leukopenia and will watch Today's exam shows stable ocular surface with relatively quiet OCP (except mild external lid erythema) Multiple short trichiasis removed today CPM and will see patient in 2-[address] Gan Assessment & Plan (09/02/2018 4:35 PM CDT): 1 mth f/u Contact dermatitis of eyelid both eyes (OU) and was treated with LMX pricilla and now better H/o OCP MMP,BCL OU, Delta VA CTL with near OD and Distance OS, Epilation OU Trichiasis, BCTL OU. Polymyxin 5x daily ou has been getting cytoxan infusion q3m Moderately flare up of conj inflammation and more trichiasis both eyes (OU) May consider earlier cytoxan infusion (q 10 weeks instead of q 3 months) Patient will relate the message to Dr. Gan for cytoxan adjustment RTC q 6-8 weeks Assessment & Plan (07/01/2018 12:07 PM CDT): H/o OCP MMP,BCL OU, Delta VA CTL with near OD and Distance OS, Trichiasis OU. - continue with right eye (OD) MED 14.2 SAEED -0.25 -continue w/ left eye (OS) with saeed 13.6, PWR -2.00 base curve (BC) 8.2. Epilation both eyes (OU) [place] CPM Polymyxin QID both eyes (OU) On cytoxan 1500 mg -off of oral pred, will continue to observe. Sees Dr Gan (Rheum) today. RTC in 2-3 months for repeat eval of OCP activity. Assessment & Plan (05/25/2018 8:02 AM CDT): H/o OCP MMP,BCL OU, Delta VA CTL with near OD and Distance OS, Trichiasis OU. Was having difficulty with vision after self-replacing BCL with old lens which he thought was moving too much. Replaced with lens given last time (OD MED 14.2 SAEED -0.25). Still with increased movement, but no longer with vision difficulties. Could also try STP if pt does not like, but currently happy. -continue w/ left eye (OS) with saeed 13.6, PWR -2.00 base curve (BC) 8.2. Epilation both eyes (OU) [place] CPM Polymyxin QID both eyes (OU) On cytoxan 1500 mg -off of oral pred, will continue to observe. RTC in 2-3 months for repeat eval of OCP activity. Assessment & Plan (04/01/2018 6:49 PM CATCHER PLUG): H/o OCP MMP,BCL OU, Delta VA CTL with near OD and Distance OS, Trichiasis OU. vision is unchanged with current BCL (clean lenses OU) (New BCL given one for each eye: left eye (OS) with saeed 13.6, PWR -2.00 base curve (BC) 8.2; Right eye Med, 14.2 saeed -0.25 BCL-01/19/18) Epilation both eyes (OU) [place] CPM Polymyxin QID both eyes (OU) On pred 5 mg orally; cytoxan 1500 mg per 10 weeksMay consider taperin off Pred 5/2.5 then 2.5/2.5 tehn 2.5/0 weekly Assessment & Plan (01/19/2018 6:34 PM CATCHER PLUG): H/o OCP.MMP,BCL OU, 2 mth F/U Recent injection of Cytoxan 1500 mg on 11/23/17 No pain or discomfort, VA is stable BCTL both eyes (OU): Delta VA CTL with near OD and distance OS (using -2.00 BCL), Epilation both eyes (OU) Trichiasis Normally cytoxan infusion q 8 weeks, but will try to see if can be extended to q 10 weeks (OS still has some inflammation, but right eye (OD) is relatively quiet) CPM with Monovision BCL OU Polymyxin QID OU Prednisone 5mg per day Assessment & Plan (11/19/2017 12:20 PM CDT): No significant inflammation today -overall quiet other than lash-K touch and existing symblepharon. Assessment & Plan (09/17/2017 3:50 PM CDT): 3 month follow up. No discomfort or vision change. Delta VA CTL with near OD and Distance left eye (OS) with Saeed 13.6, PWR -2.00 base curve (BC) 8.2 CPM Polymyxin 4/Day, alternating Prednisone 5/2.5 mg per day. Last Cytoxan infusion 1250 mg on 07/28/17. Scheduled q2M Trichiasis 12/06/2015 Assessment & Plan (12/25/2021 3:54 PM CDT): Several cilia epilated left eye (OS) upper lid. Assessment & Plan (09/20/2020 9:55 AM CDT): Hx OCP with significant lid inflammation/scarring maintained on Remicade TODAY: -Numerous short/broken lashes misdirected toward the cornea -Several lashes removed on both upper and lower lids of both eyes PLAN: -Continue current management -RTC 6 weeks for likely repeat epilation Assessment & Plan (05/25/2018 8:00 AM CDT): Epilated both eyes today. Assessment & Plan (01/19/2018 6:37 PM CATCHER PLUG): Epilation today both upper and lower lids. Delta VA CTL with near OD and Distance New BCL given one for each eye: left eye (OS) with saeed 13.6, PWR -2.00 base curve (BC) 8.2; Right eye Med, 14.2 saeed -0.25 BCL CPM with polymyxin QID OU Assessment & Plan (11/19/2017 12:37 PM CDT): Epilation today both upper and lower lids. Delta VA CTL with near OD and Distance left eye (OS) with Saeed 13.6, PWR -2.00 base curve (BC) 8.2 Right eye med step 14.2 saeed -recommend replacing the above lenses CPM Polymyxin 4/Day, alternating Prednisone 5mg per day Last Cytoxan infusion next week. RTC in 2-3 months. Social History Tobacco Use Types Packs/Day Years Used Date Smoking Tobacco: Never Smokeless Tobacco: Never Tobacco Cessation:Counseling Given: Not Answered Alcohol Use Standard Drinks/Week Comments Yes 0 (1 standard drink = 0.6 oz pur e alcohol) moderate per patient AUDIT-C Answer Date Recorded Q1: How often do you have a drink containing alcohol? Never 12/03/2023 Q2: How many drinks containi ng alcohol do you have on a typical day when you are drinking? Patient does not drink Q3: How often do you have si x or more drinks on one occasion? Never 12/03/2023 Hunger Vital Sign Answer Date Recorded Within the past 12 months, y ou worried that your food would run out before you got the money to buy more. Never true 04/05/19 Within the past 12 months, t he food you bought just didn't last and you didn't have money to get more. Never true 04/05/2024 Personal Safety Answer Date Recorded Have you ever been in or are you currently in a harmful physical or emotional relationship or is someone making you feel afraid or unsafe? Denies 04/05/2024 Sex and Gender Information Value Date Recorded Sex Assigned at Not on file Legal Sex Male 4:01 AM CATCHER PLUG Gender Identity Male 01/26/2020 2:13 PM CATCHER PLUG Sexual Orientation Straight 01/26/2020 2: 13 PM CATCHER PLUG Last Filed Vital Signs Vital Sign Reading Time Taken Comments Blood Pressure 139/56 04/05/2024 1:10 PM CATCHER PLUG Pulse 63 04/05/2024 1:10 PM CATCHER PLUG Temperature 36.5 C (97.7 F) 04/05/2024 8:46 AM CATCHER PLUG Respiratory Rate 18 04/05/2024 8:46 AM CATCHER PLUG Oxygen Saturation 96% 04/05/2024 1:10 PM CATCHER PLUG Inhaled Oxygen Concentration - - Weight 93.2 kg (205 lb 8 oz) 04/05/2024 8:46 AM CATCHER PLUG Height 177.8 cm (5' 10 ) 04/05/2024 8:46 AM CATCHER PLUG Body Mass Index 29.49 04/05/2024 8:46 AM CATCHER PLUG Plan of Treatment Not on file Medical Devices Implanted Type Area Rodeo Clown Device Identifier Shelf Expiration Date Model / Serial / Lot [employer] Amniograft 2.5x2cm Allograft Cryopreserved A [id number] Graft Ag-2520 - [id number] - [id number] Implanted:Qty: 1 on 06/04/2023 by Lesly Mac MD PhD at [facility] Non-Track ed Tissue Left: Eye [employer] 04/18/2024 AG-2520 / [id number] Description:Amniograft Ref: [id number] [employer] Stent Ureteral Set Double Pigtail Radiopaque Tip Universa [id number] Polyurethane Hydrophilic Coated [id number] - [id number] Implanted:Qty: 1 on 12/03/2023 by Ana Maria Saba MD at [facility] Stent [employer] [id number] 08/13/2026 [id number] / / [id number] Explanted Type Area Rodeo Clown Device Identifier Shelf Expiration Date Model / Serial / Lot [employer] Stent Ureteral Set Double Pigtail Radiopaque Tip Universa [id number] Polyurethane Hydrophilic Coated [id number] - Sna - [id number] Implanted:Qty: 1 on 11/24/2023 by Bob Stevens MD at [facility] Explanted:Qty: 1 on 12/03/2023 by Ana Maria Saba MD at [facility] Stent [employer] [id number] 08/13/2026 [id number] / NA / [id number] Description:Stent intact Procedures Procedure Name Priority Date/Time Associated Diagnosis Comments COMPREHENSIVE METABOLIC PANEL Routine 04/16/2024 11:08 AM CATCHER PLUG CBC WITH AUTO DIFFERENTIAL Routine 04/16/2024 11:08 AM CATCHER PLUG REFLEXIVE URINE CULTURE Routine 04/16/2024 11:08 AM CATCHER PLUG URINALYSIS AND REFLEX TO MICROSCOPIC AND CULTURE Routine 04/16/2024 11:08 AM CATCHER PLUG OCP (ocular cicatricial pemphigoid) (HCC) High risk medications (not anticoagulants) long-term use COMPREHENSIVE METABOLIC PANEL Routine 04/01/2024 8:35 AM CATCHER PLUG OCP (ocular cicatricial pemphigoid) (HCC) High risk medications (not anticoagulants) long-term use CBC WITH AUTO DIFFERENTIAL Routine 04/01/2024 8:35 AM CATCHER PLUG OCP (ocular cicatricial pemphigoid) (HCC) High risk medications (not anticoagulants) long-term use REFLEXIVE URINE CULTURE Routine 04/01/2024 8:35 AM CATCHER PLUG URINALYSIS AND REFLEX TO MICROSCOPIC AND CULTURE Routine 04/01/2024 8:35 AM CATCHER PLUG OCP (ocular cicatricial pemphigoid) (HCC) High risk medications (not anticoagulants) long-term use US KIDNEY COMPLETE Schedule Routine, Read Routine (OP Routine) 02/19/2024 2:45 PM CATCHER PLUG Kidney stone AEROBIC AND ANAEROBIC CULTURE AND GRAM STAIN Routine 02/18/2024 10:46 AM CATCHER PLUG OCP (ocular cicatricial pemphigoid) (HCC) AEROBIC AND ANAEROBIC CULTURE AND GRAM STAIN Routine 02/18/2024 10:46 AM CATCHER PLUG OCP (ocular cicatricial pemphigoid) (HCC) SERUM HEPATITIS C AB Routine 01/03/2016 12:12 PM CDT from Last 3 Months or Most Recently Relevant to Health Maintenance Results * REFLEXIVE URINE CULTURE (04/16/2024 11:08 AM CATCHER PLUG) [facility]:NO CULTURE INDICATED 04/16/2024 11:0 8 AM CATCHER PLUG 04/16/2024 11:08 AM CATCHER PLUG Narrative [facility] - 04/17/2024 6:33 AM CATCHER PLUG FASTING:YES FASTING: YES us Timoteo Mtz MD PhD LAB MICROBIOLOGY - GENER AL ORDERABLES [facility] [id number] [place] [id number] * Urinalysis reflex to microscopic and culture Urine, clean voided (04/16/2024 11:08 AM CATCHER PLUG) Color, ur YELLOW YELLOW [facility] Appearance, ur CLEAR CLEAR [facility] Specific gravity 1.021 1.001 - 1.035 [facility] Mike pH, ur 5.5 5.0 - 8.0 [facility] Glucose, ur NEGATIVE NEGATIVE [facility] Bilirubin, ur NEGATIVE NEGATIVE [facility] Ketones, ur NEGATIVE NEGATIVE [facility] Blood, ur NEGATIVE NEGATIVE [facility] Protein, ur, quant NEGATIVE NEGATIVE [facility] Nitrites, ur NEGATIVE NEGATIVE [facility] Leukocyte esterase, ur NEGATIVE NEGATIVE [facility] WBC, ur NONE SEEN < OR = 5 /HPF [facility] RBC, ur NONE SEEN < OR = 2 /HPF [facility] Epithelial cells, squamous, ur NONE SEEN < OR = 5 /HPF [facility] Bacteria, ur, quant NONE SEEN NONE SEEN /HPF [facility] Hyaline cast NONE SEEN NONE SEEN /LPF [facility] Note [facility] Comment: This urine was analyzed for the presence of WBC, RBC, bacteria, casts, and other formed elements. Only those elements seen were reported. Urine, clean voided 04/16/2024 11:08 AM CATCHER PLUG 04/16/2024 11:08 AM CATCHER PLUG Narrative [facility] - 04/17/2024 6:33 AM CATCHER PLUG FASTING:YES FASTING: YES Timoteo Mtz MD PhD LAB MICROBIOLOGY - [facility] ORDERABLES Final Result [facility] [address] [place] [address] * (ABNORMAL) CBC with auto differential (04/16/2024 11:08 AM CATCHER PLUG) WBC 3.7(L) 3.8 - 10.8 Thousand/u L [facility] RBC, POC 3.68(L) 4.20 - 5.80 Million/uL [facility] Hgb 12.1(L) 13.2 - 17.1 g/dL [facility] Hct 36.0(L) 38.5 - 50.0 % [facility] MCV 97.8 80.0 - 100.0 fL [facility] MCH 32.9 27.0 - 33.0 pg [facility] MCHC 33.6 32.0 - 36.0 g/dL [facility] Comment: For adults, a slight decrease in the calculated MCHC value (in the range of 30 to 32 g/dL) is most likely not clinically significant; however, it should be interpreted with caution in correlation with other red cell parameters and the patient's clinical condition. Rdw 13.7 11.0 - 15.0 % [facility] Platelets 130(L) 140 - 400 Thousand/u L [facility] MPV 10.9 7.5 - 12.5 fL [facility] Neutrophils, abs 2,538 1,500 - 7,800 cells/uL [facility] Lymphocytes, abs 448(L) 850 - 3,900 cells/uL [facility] Monocyte abs 466 200 - 950 cells/uL [facility] Eosinophils, abs 200 15 - 500 cells/uL [facility] Basophils, abs 48 0 - 200 cells/uL [facility] Neutrophils 68.6 % [facility] Lymphocyte pct 12.1 % [facility] Monocytes 12.6 % [facility] Eosinophils 5.4 % [facility] Basophils 1.3 % [facility] 04/16/2024 11:0 8 AM CATCHER PLUG 04/16/2024 11:08 AM CATCHER PLUG Narrative [facility] - 04/17/2024 6:33 AM CATCHER PLUG FASTING:YES FASTING: YES us Timoteo Mtz MD PhD LAB BLOOD ORDERABLES Fin al Result [facility] [address] [place] [id number] * (ABNORMAL) Comprehensive metabolic panel (04/16/2024 11:08 AM CATCHER PLUG) [facility] Glucose 97 65 - 99 mg/dL [facility] Comment: Fasting reference interval BUN 23 7 - 25 mg/dL [facility] Creatinine 1.33(H) 0.70 - 1.28 mg/dL [facility] eGFR 56(L) > OR = 60 mL/min/1.7 3m2 [facility] BUN/creat ratio 17 6 - 22 (calc) [facility] Sodium 140 135 - 146 mmol/L [facility] Potassium, pl 4.8 3.5 - 5.3 mmol/L [facility] Chloride 108 98 - 110 mmol/L [facility] CO2 24 20 - 32 mmol/L [facility] Calcium 8.8 8.6 - 10.3 mg/dL [facility] Protein, sr 6.3 6.1 - 8.1 g/dL [facility] Albumin 4.3 3.6 - 5.1 g/dL [facility] GLOBULIN 2.0 1.9 - 3.7 g/dL (calc) [facility] Alb/glob ratio 2.2 1.0 - 2.5 (calc) [facility] Bilirubin, total 0.7 0.2 - 1.2 mg/dL [facility] Alk phos 66 35 - 144 U/L [facility] AST 24 10 - 35 U/L [facility] ALT (SGPT) 16 9 - 46 U/L [facility] 04/16/2024 11:0 8 AM CATCHER PLUG 04/16/2024 11:08 AM CATCHER PLUG Narrative [facility] - 04/17/2024 6:33 AM CATCHER PLUG FASTING:YES FASTING: YES Timoteo Mtz MD PhD LAB BLOOD ORDERABLES Fin al Result [facility] [address] [place] [address] * REFLEXIVE URINE CULTURE (04/01/2024 8:35 AM CATCHER PLUG) Urine culture [facility] Comment:NO CULTURE INDICATED 04/01/2024 8:35 AM CATCHER PLUG 04/01/2024 8:36 AM CATCHER PLUG Timoteo Mtz MD PhD LAB MICROBIOLOGY - [facility] AL ORDERABLES Final Result [facility] [address] [place] [address] * Urinalysis reflex to microscopic and culture Urine, clean voided (04/01/2024 8:35 AM CATCHER PLUG) Color, ur YELLOW YELLOW [facility] Appearance, ur CLEAR CLEAR [facility] Specific gravity 1.018 1.001 - 1.035 [facility] pH, ur 5.5 5.0 - 8.0 [facility] Glucose, ur NEGATIVE NEGATIVE [facility] Bilirubin, ur NEGATIVE NEGATIVE [facility] Ketones, ur NEGATIVE NEGATIVE [facility] Blood, ur NEGATIVE NEGATIVE [facility] Protein, ur, quant NEGATIVE NEGATIVE [facility] Nitrites, ur NEGATIVE NEGATIVE [facility] Leukocyte esterase, ur NEGATIVE NEGATIVE [facility] WBC, ur NONE SEEN < OR = 5 /HPF [facility] RBC, ur NONE SEEN < OR = 2 /HPF [facility] Epithelial cells, squamous, ur NONE SEEN < OR = 5 /HPF [facility] Bacteria, ur, quant NONE SEEN NONE SEEN /HPF [facility] Hyaline cast NONE SEEN NONE SEEN /LPF [facility] Note [facility] Comment: This urine was analyzed for the presence of WBC, RBC, bacteria, casts, and other formed elements. Only those elements seen were reported. Urine, clean voided 04/01/2024 8:35 AM CATCHER PLUG 04/01/2024 8:36 AM CATCHER PLUG Timoteo Mtz MD PhD LAB MICROBIOLOGY - [facility] ORDERABLES Final Result [facility] [address] [place] [address] * (ABNORMAL) CBC with auto differential (04/01/2024 8:35 AM CATCHER PLUG) WBC 5.4 3.8 - 10.8 Thousand/u L [facility] RBC, POC 4.04(L) 4.20 - 5.80 Million/uL [facility] Hgb 13.0(L) 13.2 - 17.1 g/dL [facility] Hct 39.2 38.5 - 50.0 % [facility] MCV 97.0 80.0 - 100.0 fL [facility] MCH 32.2 27.0 - 33.0 pg [facility] MCHC 33.2 32.0 - 36.0 g/dL [facility] Comment: For adults, a slight decrease in the calculated MCHC value (in the range of 30 to 32 g/dL) is most likely not clinically significant; however, it should be interpreted with caution in correlation with other red cell parameters and the patient's clinical condition. Rdw 13.3 11.0 - 15.0 % [facility] Platelets 139(L) 140 - 400 Thousand/u L [facility] MPV 10.9 7.5 - 12.5 fL [facility] Neutrophils, abs 3,807 1,500 - 7,800 cells/uL [facility] Lymphocytes, abs 572(L) 850 - 3,900 cells/uL [facility] Monocyte abs 605 200 - 950 cells/uL [facility] Eosinophils, abs 383 15 - 500 cells/uL [facility] Basophils, abs 32 0 - 200 cells/uL [facility] Neutrophils 70.5 % [facility] Lymphocyte pct 10.6 % [facility] Monocytes 11.2 % [facility] Eosinophils 7.1 % [facility] Basophils 0.6 % [facility] Blood 04/01/2024 8:35 AM CATCHER PLUG 04/01/2024 8:36 AM CATCHER PLUG us Timoteo Mtz MD PhD LAB BLOOD ORDERABLES Fin al Result [facility] [address] [address] [place] [address] * Comprehensive metabolic panel (04/01/2024 8:35 AM CATCHER PLUG) Pathologist [facility] Glucose 99 65 - 99 mg/dL [facility] Comment: Fasting reference interval BUN 23 7 - 25 mg/dL [facility] Creatinine 1.22 0.70 - 1.28 mg/dL [facility] eGFR 62 > OR = 60 mL/min/1.7 3m2 [facility] BUN/creat ratio SEE NOTE: 6 - 22 (calc) [facility] Comment: Not Reported: BUN and Creatinine are within reference range. Sodium 141 135 - 146 mmol/L [facility] Potassium, pl 4.3 3.5 - 5.3 mmol/L [facility] Chloride 107 98 - 110 mmol/L [facility] CO2 29 20 - 32 mmol/L [facility] Calcium 9.2 8.6 - 10.3 mg/dL [facility] Protein, sr 6.8 6.1 - 8.1 g/dL [facility] Albumin 4.6 3.6 - 5.1 g/dL [facility] GLOBULIN 2.2 1.9 - 3.7 g/dL (calc) [facility] Alb/glob ratio 2.1 1.0 - 2.5 (calc) [facility] Bilirubin, total 0.7 0.2 - 1.2 mg/dL [facility] Alk phos 69 35 - 144 U/L [facility] AST 27 10 - 35 U/L [facility] ALT (SGPT) 16 9 - 46 U/L [facility] Blood 04/01/2024 8:35 AM CATCHER PLUG 04/01/2024 8:36 AM CATCHER PLUG us Timoteo Mtz MD PhD LAB BLOOD ORDERABLES Fin al Result [facility] [address] [place] [id number] * US Kidney Complete (02/19/2024 2:45 PM CATCHER PLUG) Anatomical Region Laterality Modality Kidney N/A Ultrasound 02/19/2024 3:02 PM CATCHER PLUG Impressions 02/19/2024 3:26 PM CATCHER PLUG Normal kidneys. No hydronephrosis or nephrolithiasis. Dictated by: Christian Wynn M.D. The radiology attending physician has personally reviewed this study, and had reviewed and/or edited this written report and agrees with it. Electronically signed by: Beka Pierson M.D. Narrative 02/19/2024 3:26 PM CATCHER PLUG EXAMINATION: COMPLETE RENAL SONOGRAM HISTORY: Nephrolithiasis status post left ureteroscopy with laser lithotripsy 12/03/2023, follow-up examination. COMPARISON: CT abdomen pelvis 11/23/2023 FINDINGS: Kidneys: The echogenicity of both kidneys is normal. The kidneys are normal in size. The right kidney measures 10.6 cm in length, and the left, 10.4 cm in length. There is no hydronephrosis in either kidney. There are no renal calculi visualized. Bladder: The urinary bladder is normal. Procedure Note Beka Pierson MD - 02/19/2024 EXAMINATION: COMPLETE RENAL SONOGRAM HISTORY: Nephrolithiasis status post left ureteroscopy with laser lithotripsy 12/03/2023, follow-up examination. COMPARISON: CT abdomen pelvis 11/23/2023 FINDINGS: Kidneys: The echogenicity of both kidneys is normal. The kidneys are normal in size. The right kidney measures 10.6 cm in length, and the left, 10.4 cm in length. There is no hydronephrosis in either kidney. There are no renal calculi visualized. Bladder: The urinary bladder is normal. IMPRESSION: Normal kidneys. No hydronephrosis or nephrolithiasis. Dictated by: Christian Wynn M.D. The radiology attending physician has personally reviewed this study, and had reviewed and/or edited this written report and agrees with it. Electronically signed by: Beka Pierson M.D. Bob Stevens MD IMG US PROCEDURES Fin al Result * Aerobic and anaerobic culture and gram stain Cornea Eye, right (02/18/2024 10:46 AM CATCHER PLUG) Direct Specimen Exam Stain: No polymorphonuclear leukocytes seen. No organisms seen. Report Final Report: [facility] Cornea (Eye, right) 02/18/2024 10:46 AM CATCHER PLUG 02/18/2024 11:50 AM CATCHER PLUG Narrative [facility] - 02/21/2024 10:48 AM CATCHER PLUG Contact lens right eye No contact lens was received. Specimen received as an ESwab. Testing performed by [facility] ([phone]) Specimens submitted from normally sterile body sites will have all bacterial morphotypes identified. Specimens that contain grossly mixed olamide and/or are from body sites that are not normally sterile will be examined for Staphylococcus aureus, Pseudomonas aeruginosa, beta-hemolytic strep, vancomycin-resistant Enterococcus, Bacteroides, Parabacteroides, Clostridium perfringens and fungus. If any of these are isolated, the organism will be reported. Current interpretive data was last revised on 2019. us Lesly Mac MD PhD LAB MICROBIOLOGY - [facility] ORDERABLES Final Result [facility] [place] [address] * (ABNORMAL) Aerobic and anaerobic culture and gram stain Cornea Eye, right (02/18/2024 10:46 AM CATCHER PLUG) Direct Specimen Exam Stain: No polymorphonuclear leukocytes seen. No organisms seen. Report Final Report: Rare Coagulase negative Staphylococcus species No further workup. (.) [facility] Organism COAGULASE NEGATIVE STAPHYLOCOCCUS SPECIES [facility] Cornea (Eye, right) 02/18/2024 10:46 AM CATCHER PLUG 02/18/2024 11:50 AM CATCHER PLUG Narrative [facility] - 02/22/2024 2:05 PM CATCHER PLUG Contact lens swab right eye Specimen received on an ESwab. Testing performed by [facility] ([phone]) Specimens submitted from normally sterile body sites will have all bacterial morphotypes identified. Specimens that contain grossly mixed olamide and/or are from body sites that are not normally sterile will be examined for Staphylococcus aureus, Pseudomonas aeruginosa, beta-hemolytic strep, vancomycin-resistant Enterococcus, Bacteroides, Parabacteroides, Clostridium perfringens and fungus. If any of these are isolated, the organism will be reported. Current interpretive data was last revised on 2019. Lesly Mac MD PhD LAB MICROBIOLOGY - [facility] ORDERABLES Final Result [facility] [place] [address] * Serum Hepatitis C ab (01/03/2016 12:12 PM CDT) HCV ab Negative NEG CDR HISTOR ICAL RESULTS Serum 01/03/2016 12:1 2 PM CDT Narrative [facility]R HISTORICAL RESULTS - 01/04/2016 7:16 AM CDT Interpretive Data Positive results should be confirmed by a molecular method. If positive, a second separately collected sample should be submitted for Hepatitis C Virus (HCV) RNA Detection and Quantitation by Real-Time Reverse Teaching Manager-PCR (RT-PCR). Current interpretive data was last revised on 2015. us Fatmata Batista MD LAB BLOOD ORDERABLES Fi nal Result [facility]R HISTORICAL RESULTS from Last 3 Months or Most Recently Relevant to Health Maintenance Insurance [employer] [employer] [place] MEDICARE [employer] [facility] KYLE Arita, [place] [id number] Advance Directives For more information, please contact: [phone] * Full Code (Latest Code Status on File) Date Activated Date Inactivated Comments 11/23/2023 7:47 PM 11/24/2023 9:44 PM Care Teams Cassandra Developer Relationship Specialty Start Date End Date Jose Armando Kim MD [address] [place] [id number] PCP - General 05/06/16
--- OUTSIDE RECORDS SUMMARY | 2024-05-17 12:00 | XMS_ITS | Encounter Summary ---
Author Organization [facility] Healthcare Address [address] [place] [address] Care Team Providers Care Professional Development Instructor Name Role Phone Jose Armando Kim MD Primary Care Prov ider Encounter Details Date Type Department Care Team (Late st Contact Info) Description 08/16/2022 Telephone [facility] [address] [place] [id number] Danita Salomon RN Social History Tobacco Use Types Packs/Day [...] the money to buy more. Never true 05/28/19 23 Within the past 12 months, t he food you bought just didn't last and you didn't have money to get more. 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
--- OUTSIDE RECORDS SUMMARY | 2024-05-17 12:00 | XMS_ITS | Clinical Summary ---
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[facility]) Administer 1 drop into both eyes 4 [...] 4:34 PM CDT): Hx/o OCP MMP,BCL OU, [place] [facility] with near OD and Distance [...] (11/19/2017 2:19 PM CDT): On cytoxan infusion [id number] with pre-infusion lab and 2wk post infusion [...] 12/06/2015 Assessment & Plan (02/19/2023 11:15 AM CONTACT WORKER): - Hx OCP and trichiasis OU, co-managed [...] MD Assessment & Plan (01/29/2023 10:44 AM CONTACT WORKER): - Hx OCP and trichiasis OU, co-managed [...] month Assessment & Plan (05/15/2022 12:27 PM CONTACT WORKER): Hx OCP and trichiasis OU, comanaged with [...] month Assessment & Plan (04/17/2022 10:08 AM CONTACT WORKER): Hx OCP and trichiasis OU, comanaged with Dr. 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 Mtz - Drede infusion done 07/30/21, 08/27, 09/24, 10/22 - [...] OU, comanaged with Dr. Mtz On remicade [id number] moderate control TODAY: -Disease continues to appears moderately active OS>OD with injection of inferior tarsal conjunctiva. -Symptom per patient about stable. -Self epilating at home- few lashes removed at [facility]. -BCL in place OU PLAN: -Continue to follow with rheum- will be seeing Dr. Mtz today; currently on remicade q6w - may need to consider increasing dose to q4 weeks for improved control. Will discuss with Rheum today. -Continue polytrim QID OU -Lashes epilated today -Recommend using magnified mirror and duck-bill tweezers if self-epilating. 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, [...] mos Assessment & Plan (04/21/2019 9:05 AM CONTACT WORKER): 1 month follow up H/O MMP, BCL OU, [facility] with near OD and Distance [...] mos Assessment & Plan (03/17/2019 2:28 PM CONTACT WORKER): 1 month follow up H/O MMP,BCL OU, [place] [facility] with near OD and Distance [...] weeks Assessment & Plan (02/10/2019 8:34 AM CONTACT WORKER): 1 month follow up H/O MMP,BCL OU, [place] [facility] with near OD and Distance [...] appointment Assessment & Plan (01/18/2019 11:47 AM CONTACT WORKER): 1 month follow up H/O MMP,BCL OU, [place] [facility] with near OD and Distance [...] (12/16/2018 12:19 PM CDT): H/O MMP,BCL OU, [place] [facility] with near OD and Distance [...] (10/21/2018 3:20 PM CDT): H/O MMP,BCL OU, [place] [facility] with near OD and Distance [...] and now better H/o OCP MMP,BCL OU, [place] [facility] with near OD and Distance [...] 12:07 PM CDT): H/o OCP MMP,BCL OU, [place] [facility] with near OD and Distance [...] 8:02 AM CDT): H/o OCP MMP,BCL OU, [place] [facility] with near OD and Distance [...] activity. Assessment & Plan (04/01/2018 6:49 PM CONTACT WORKER): H/o OCP MMP,BCL OU, [place] [facility] with near OD and Distance [...] weekly Assessment & Plan (01/19/2018 6:34 PM CONTACT WORKER): H/o OCP.MMP,BCL OU, 2 mth F/U Recent injection of Cytoxan 1500 mg on 11/23/17 No pain or discomfort, VA is stable BCTL both eyes (OU): [facility] with near OD and distance [...] follow up. No discomfort or vision change. [facility] [facility] with near OD and Distance [...] today. Assessment & Plan (01/19/2018 6:37 PM CONTACT WORKER): Epilation today both upper and lower lids. [facility] with near OD and Distance New BCL given one for each eye: left eye (OS) with saeed 13.6, PWR -2.00 base curve (BC) 8.2; Right eye Med, 14.2 saeed -0.25 BCL CPM with polymyxin QID OU Assessment & Plan (11/19/2017 12:37 PM CDT): Epilation today both upper and lower lids. [facility] with near OD and Distance left eye (OS) with Saeed 13.6, PWR -2.00 base curve (BC) 8.2 Right eye med step 14.2 saeed -recommend replacing the above lenses CPM Polymyxin 4/Day, alternating Prednisone 5mg per day Last Cytoxan infusion next week. RTC in 2-3 months. Encounters Date Type Department Care Team Description 05/14/2024 Telephone [facility] [address] [phone] Lesly Mac MD PhD 04/23/2024 3:00 PM CONTACT WORKER Office Visit [facility] Op[facility] [address] [place] [phone] Lesly Mac MD PhD OCP (ocular cicatricial pemphigoid) (HCC) (Primary Dx) 04/20/2024 Telephone [facility] [address] [place] [phone] Lesly Mac MD PhD appt 04/05/2024 9:00 AM CONTACT WORKER Infusion [facility] [address] [place] [phone] Other primary thrombocytopenia (HCC) (Primary Dx) 03/18/2024 8:45 AM CONTACT WORKER Office Visit [facility] [address] [place] [phone] Lesly Mac MD PhD OCP (ocular cicatricial pemphigoid) (HCC) (Primary Dx) 02/25/2024 11:45 AM CONTACT WORKER Office Visit [facility] [address] [place] [phone] Lauren Madrigal MD OCP (ocular cicatricial pemphigoid) (HCC) (Primary Dx); Abrasion of right cornea, subsequent encounter 02/25/2024 Telephone [facility] [address] [place] [phone] Lauren Madrigal MD same day appt 02/20/2024 12:45 PM CONTACT WORKER Office Visit [facility] [address] [place] [address] [phone] Lesly Mac MD PhD OCP (ocular cicatricial pemphigoid) ([facility]) (Primary Dx); Trichiasis of eyelid of both eyes; Abrasion of right cornea, subsequent encounter 02/19/2024 2:24 PM CONTACT WORKER - 02/19/2024 11:59 PM CONTACT WORKER Hospital Encounter [facility] [address] [place] [address] Kidney stone Discharge Disposition: Discharge to home or self care 02/19/2024 1:00 PM CONTACT WORKER Office Visit [facility] Advanced [facility] ([facility] - [facility] Urology [address] 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); High risk medications (not anticoagulants) long-term use 02/18/2024 8:45 AM CONTACT WORKER Office Visit [facility] Ophthalmology [address] [place] [phone] Lesly Mac MD PhD OCP (ocular cicatricial pemphigoid) (HCC) (Primary Dx) 02/18/2024 Orders Only [facility] [address] [place] [phone] Lesly Mac MD PhD OCP (ocular cicatricial pemphigoid) (HCC) (Primary Dx) from Last 3 Months Surgical History Surgery Date Site/Laterality Comments JOINT REPLACEMENT 05/09/2015 - 06/08/2015 Right hip EYE SURGERY 06/04/2023 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 Never true 04/05/19 25 Within the past 12 months, t he [...] on file Legal Sex Male 4:01 AM CONTACT WORKER Gender Identity Male 01/26/2020 2:13 PM CONTACT WORKER Sexual Orientation Straight 01/26/2020 2: 13 PM CONTACT WORKER Obstetrics History Last Filed Vital Signs Vital Sign Reading Time Taken Comments Blood Pressure 139/56 04/05/2024 1:10 PM CONTACT WORKER Pulse 63 04/05/2024 1:10 PM CONTACT WORKER Temperature 36.5 C (97.7 F) 04/05/2024 8:46 AM CONTACT WORKER Respiratory Rate 18 04/05/2024 8:46 AM CONTACT WORKER Oxygen Saturation 96% 04/05/2024 1:10 PM CONTACT WORKER Inhaled Oxygen Concentration - - Weight 93.2 kg (205 lb 8 oz) 04/05/2024 8:46 AM CONTACT WORKER Height 177.8 cm (5' 10 ) 04/05/2024 8:46 AM CONTACT WORKER Body Mass Index 29.49 04/05/2024 8:46 AM CONTACT WORKER Plan of Treatment Health Maintenance Due Date Last Done Comments Colon Cancer Screening-Colonoscopy 1950 Depression Screening 1948 Hepatitis B Screening 1966 Pneumococcal vaccine 65+ (1 of 2 - PCV) 12/15/1967 Zoster Vaccine (1 of 2) 12/15/1967 Well Visit 65+ 2013 Influenza Vaccine (#1) 2023 12/29/2014 Fall Risk Assessment 12/02/2024 12/03/2023 DTaP/Tdap/Td Vaccine (2 - Td or Tdap) 09/18/202502/2016 Hepatitis C Screening Completed 01/03/2016 Medical Devices Implanted Type Area Tank Cleaner Device Identifier Shelf Expiration Date Model / Serial / Lot [employer] SoPost Amniograft 2.5x2cm Allograft Cryopreserved A [id number] Graft Ag-2520 - [id number] - [id number] Implanted:Qty: 1 on 06/04/2023 by Lesly Mac MD PhD at [facility] Non-Track ed Tissue Left: Eye [employer] 04/18/2024 AG-[id number] / [id number] Description:Amniograft Ref: [id number] [employer] So[employer] Stent Ureteral Set Double Pigtail Radiopaque Tip Universa [id number] Polyurethane Hydrophilic Coated [id number] - [id number] Implanted:Qty: 1 on 12/03/2023 by Ana Maria Saba MD at [facility] Stent [employer] [id number] 08/13/2026 [id number] / / [id number] Explanted Type Area Tank Cleaner Device Identifier Shelf Expiration Date Model / Serial / Lot [employer] Stent Ureteral Set Double Pigtail Radiopaque Tip Universa [id number] Polyurethane Hydrophilic Coated [id number] - Sna - [id number] Implanted:Qty: 1 on 11/24/2023 by Bob Stevens MD at [facility] Explanted:Qty: 1 on 12/03/2023 by Ana Maria Saba MD at [facility] [employer] [id number] 08/13/2026 [id number] / NA / [id number] Description:Stent intact Procedures Procedure Name Priority Date/Time Associated Diagnosis Comments COMPREHENSIVE METABOLIC PANEL Routine 04/16/2024 11:08 AM CONTACT WORKER CBC WITH AUTO DIFFERENTIAL Routine 04/16/2024 11:08 AM CONTACT WORKER REFLEXIVE URINE CULTURE Routine 04/16/2024 11:08 AM CONTACT WORKER URINALYSIS AND REFLEX TO MICROSCOPIC AND CULTURE Routine 04/16/2024 11:08 AM CONTACT WORKER OCP (ocular cicatricial pemphigoid) (HCC) High risk medications (not anticoagulants) long-term use COMPREHENSIVE METABOLIC PANEL Routine 04/01/2024 8:35 AM CONTACT WORKER OCP (ocular cicatricial pemphigoid) (HCC) High risk medications (not anticoagulants) long-term use CBC WITH AUTO DIFFERENTIAL Routine 04/01/2024 8:35 AM CONTACT WORKER OCP (ocular cicatricial pemphigoid) (HCC) High risk medications (not anticoagulants) long-term use REFLEXIVE URINE CULTURE Routine 04/01/2024 8:35 AM CONTACT WORKER URINALYSIS AND REFLEX TO MICROSCOPIC AND CULTURE Routine 04/01/2024 8:35 AM CONTACT WORKER OCP (ocular cicatricial pemphigoid) (HCC) High risk medications (not anticoagulants) long-term use US KIDNEY COMPLETE Schedule Routine, Read Routine (OP Routine) 02/19/2024 2:45 PM CONTACT WORKER Kidney stone AEROBIC AND ANAEROBIC CULTURE AND GRAM STAIN Routine 02/18/2024 10:46 AM CONTACT WORKER OCP (ocular cicatricial pemphigoid) (HCC) AEROBIC AND ANAEROBIC CULTURE AND GRAM STAIN Routine 02/18/2024 10:46 AM CONTACT WORKER OCP (ocular cicatricial pemphigoid) (HCC) SERUM HEPATITIS C AB Routine 01/03/2016 12:12 PM CDT from Last 3 Months or Most Recently Relevant to Health Maintenance Results * REFLEXIVE URINE CULTURE (04/16/2024 11:08 AM CONTACT WORKER) [facility]NO C[facility]URE INDICATED 04/16/2024 11:0 8 AM CONTACT WORKER 04/16/2024 11:08 AM CONTACT WORKER Narrative [facility] - 04/17/2024 6:33 AM CONTACT WORKER FASTING:YES FASTING: YES Timoteo Mtz MD PhD LAB MICROBIOLOGY - [place] AL ORDERABLES Final Result [facility] [address] [place] [address] * Urinalysis reflex to microscopic and culture Urine, clean voided (04/16/2024 11:08 AM CONTACT WORKER) Color, ur YELLOW YELLOW [facility] [...] SEEN < OR = 5 /HPF [facility] Bacteria, ur, quant NONE SEEN NONE SEEN /HPF [facility] Hyaline cast NONE SEEN NONE SEEN /LPF [facility] Note [facility] Comment: This urine was analyzed for the presence of WBC, RBC, bacteria, casts, and other formed elements. Only those elements seen were reported. Urine, clean voided 04/16/2024 11:08 AM CONTACT WORKER 04/16/2024 11:08 AM CONTACT WORKER Narrative [facility] - 04/17/2024 6:33 AM CONTACT WORKER FASTING:YES FASTING: YES us Timoteo tMz MD PhD LAB MICROBIOLOGY - GENER AL ORDERABLES Final Result [facility] [address] [place] [address] * (ABNORMAL) CBC with auto differential (04/16/2024 11:08 AM CONTACT WORKER) WBC 3.7(L) 3.8 - 10.8 Thousand/u L [...] [facility] 04/16/2024 11:0 8 AM CONTACT WORKER 04/16/2024 11:08 AM CONTACT WORKER Narrative [facility] - 04/17/2024 6:33 AM CONTACT WORKER FASTING:YES FASTING: YES Timoteo Mtz MD PhD LAB BLOOD ORDERABLES Fin al Result [facility] [address] [place] [address] * (ABNORMAL) Comprehensive metabolic panel (04/16/2024 11:08 AM CONTACT WORKER) Pathologist [facility] Glucose 97 65 - 99 mg/dL [facility] [...] [facility] 04/16/2024 11:0 8 AM CONTACT WORKER 04/16/2024 11:08 AM CONTACT WORKER Narrative [facility] - 04/17/2024 6:33 AM CONTACT WORKER FASTING:YES FASTING: YES Timoteo Mtz MD PhD LAB BLOOD ORDERABLES Fin al Result Performing Organization Address City/[facility]/ZIP Co de Phone Number [facility] [address] [place] [address] * REFLEXIVE URINE CULTURE (04/01/2024 8:35 AM CONTACT WORKER) Urine culture [facility] Comment:NO CULTURE INDICATED 04/01/2024 8:35 AM CONTACT WORKER 04/01/2024 8:36 AM CONTACT WORKER Timoteo Mtz MD PhD LAB MICROBIOLOGY - GENER AL ORDERABLES Final Result Performing Organization Address City/[facility]/ZIP Co de Phone Number [facility] [address] [place] [address] * Urinalysis reflex to microscopic and culture Urine, clean voided (04/01/2024 8:35 AM CONTACT WORKER) Color, ur YELLOW YELLOW [facility] [...] reported. Urine, clean voided 04/01/2024 8:35 AM CONTACT WORKER 04/01/2024 8:36 AM CONTACT WORKER Timoteo Mtz MD PhD LAB MICROBIOLOGY - [place] [facility] AL ORDERABLES Final Result [facility] [address] [place] [address] * (ABNORMAL) CBC with auto differential (04/01/2024 8:35 AM CONTACT WORKER) WBC 5.4 3.8 - 10.8 Thousand/u L [...] [facility] Blood 04/01/2024 8:35 AM CONTACT WORKER 04/01/2024 8:36 AM CONTACT WORKER Timoteo Mtz MD PhD LAB BLOOD ORDERABLES Fin al Result [facility] [address] [place] [address] * Comprehensive metabolic panel (04/01/2024 8:35 AM CONTACT WORKER) [facility] Glucose 99 65 - 99 mg/dL [facility] [...] [facility] Blood 04/01/2024 8:35 AM CONTACT WORKER 04/01/2024 8:36 AM CONTACT WORKER us Timoteo Mzt MD PhD LAB BLOOD ORDERABLES Fin al Result [facility] [address] [place] [address] * Kidney Complete (02/19/2024 2:45 PM CONTACT WORKER) Anatomical Region Laterality Modality Kidney N/A Ultrasound 02/19/2024 3:02 PM CONTACT WORKER Impressions 02/19/2024 3:26 PM CONTACT WORKER Normal kidneys. No hydronephrosis or nephrolithiasis. Dictated by: Christian Wynn M.D. The radiology attending physician has personally reviewed this study, and had reviewed and/or edited this written report and agrees with it. Electronically signed by: Beka Pierson M.D. Narrative 02/19/2024 3:26 PM CONTACT WORKER EXAMINATION: COMPLETE RENAL SONOGRAM HISTORY: Nephrolithiasis status [...] by: Beka Pierson M.D. Bob Stevens MD [facility] US PROCEDURES Fin al Result * Aerobic and anaerobic culture and gram stain Cornea Eye, right (02/18/2024 10:46 AM CONTACT WORKER) Direct Specimen Exam Stain: No polymorphonuclear leukocytes seen. No organisms seen. Report Final Report: No growth JENNIFER NEGRON Cornea (Eye, right) 02/18/2024 10:46 AM CONTACT WORKER 02/18/2024 11:50 AM CONTACT WORKER Narrative [facility] - 02/21/2024 10:48 AM CONTACT WORKER Contact lens right eye No contact lens was received. Specimen received as an ESwab. Testing performed by [facility] Microbiology Laboratory ([phone]) Specimens submitted from normally sterile body sites [...] Lesly Mac MD PhD LAB MICROBIOLOGY - [employer] ORDERABLES Final Result [facility] [place] [address] * (ABNORMAL) Aerobic and anaerobic culture and gram stain Cornea Eye, right (02/18/2024 10:46 AM CONTACT WORKER) Direct Specimen Exam Stain: No polymorphonuclear leukocytes seen. No organisms seen. Report Final Report: Rare Coagulase negative Staphylococcus species No further workup. (.) [facility] Organism COAGULASE NEGATIVE STAPHYLOCOCCUS SPECIES [facility] Cornea (Eye, right) 02/18/2024 10:46 AM CONTACT WORKER 02/18/2024 11:50 AM CONTACT WORKER Narrative [facility] - 02/22/2024 2:05 PM CONTACT WORKER Contact lens swab right eye Specimen received on an ESwab. Testing performed by [facility] ([phone]) Specimens submitted from normally sterile body sites [...] Lesly Mac MD PhD LAB MICROBIOLOGY - GE NERAL ORDERABLES Final Result [facility] [place] [address] * Serum Hepatitis C ab (01/03/2016 12:12 [...] RNA Detection and Quantitation by Real-Time Reverse Document Coordinator-PCR (RT-PCR). Current interpretive data was last revised on 2015. Fatmata Batista MD LAB BLOOD ORDERABLES Fi nal Result CDR HISTORICAL RESULTS from Last 3 Months or Most Recently Relevant to Health Maintenance Insurance MEDICARE [employer] [facility] MEDICARE [employer] [place] MEDICARE [place] [address] Advance Directives For more information, please contact: [phone] * Full Code (Latest Code Status on File) Date Activated Date Inactivated Comments 11/23/2023 7:47 PM 11/24/2023 9:44 PM Care Teams Filing Writer Relationship Specialty Start Date End Date Jose Armando Kim MD [address] [place] [address] PCP - General 05/06/16
== END 2024-05-17 10:14 | disposition home or self-care (01) ==
PROVIDERS: PCP Family Medicine Adolescent Medicine; Visit Provider Family Medicine Adolescent Medicine
DX: M19.072 Primary osteoarthritis, left ankle and foot (principal)
CPT/HCPCS: 73600; 73620